=== PATIENT | female | born 2000 | race Hispanic/Latino ===

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

== ENCOUNTER 2022-11-07 17:50 | Emergency (ER) | payer OTHER ==
[2022-11-07 18:29] LABS: Absolute Lymphocytes (CBC) 2.5 K/uL (0.7-4.9); Hematocrit 41.2 % (36.0-45.0); Lymphocytes % 26.4 % (15.3-44.8); MCV 92.9 fL (80-100); MPV 7.6 fL (7.6-11.3); RBC Red Blood Cell Count 4.44 M/uL (3.86-4.86)
[2022-11-07 18:31] LABS: Specific Gravity 1.021 (1.005-1.030)
[2022-11-07 18:38] LABS: Specific Gravity 1.021 (1.005-1.030); Urine Bilirubin NEGATIVE (Negative); Urine Blood 3+ (OVER) (Negative); Urine Clarity Clear (Clear); Urine Color Light-Yellow (Yellow); Urine Glucose NEGATIVE (Negative); Urine Mucus 1+ /HPF (None Seen); Urine Protein TRACE (Negative); Urine Urobilinogen Normal (Normal); Urine pH 5.5 (5.0-7.0)
[2022-11-07 18:39] LABS: Urine Bacteria 20-50 /HPF (<20)
[2022-11-07 18:48] LABS: Potassium 3.4 mEq/L (3.5-5.1)
--- NOTE | 2022-11-07 20:42 | RAD REPORT ---
EXAM DESCRIPTION: US - TRANSVAG OB - 11/07/2022 8:27 pm CLINICAL HISTORY: VAGINAL BLEEDING COMPARISON: No comparisons FINDINGS: No gestational sac identified. Left ovary is unremarkable. It measures 3.3 x 1.7 x 2.9 cm with volume of 8.1 cc. Vascular flow is pr esent. The right ovary was not visualized. It may have been obscured by bowel gas. IMPRESSION: 1. No normal IUP identified. Therefore, cannot exclude early normal first trimester preg radha, failed first trimester , or early ectopic. 2. Vascular flow present in the left ovary. Right ovary not visualized.
--- NOTE | 2022-11-07 20:59 | EDPHYS ---
Physician Documentation [facility] Name: Radha Zaldivar Age: 22 yrs Sex: Female : 2000 Arrival Date: 11/07/2022 Time: 17:50 Bed 12 Private MD: ED Physician Bong Cuevas HPI: 11/07 19:46 This 22 yrs old Female presents to ER via Ambulatory with complaints of jmm Vaginal Bleeding, + Preg <12wks. 19:46 Is a 22-year-old female G1, P0 the presents emerged part with complaints of vaginal jmm bleeding. Bleeding began this past Tuesday. Seen at an ER in [facility]. Ultrasound did not reveal an IUP. Blood counts within normal limits. Patient states she has had continued bleeding. 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 - Social history:: Smoking status: Reported history of juuling and/or vaping. ROS: 19:46 Constitutional: Negative for fever, chills, and weight loss, Cardiovascular: Negative jmm for chest pain, palpitations, and edema, Respiratory: Negative for shortness of breath, cough, wheezing, and pleuritic chest pain. 19:46 : Positive for vaginal bleeding. 19:46 All other systems are negative. Exam: 19:46 Constitutional: This is a well developed, well nourished patient who is awake, alert, jmm and in no acute distress. Head/Face: atraumatic. Eyes: EOMI, no conjunctival erythema appreciated ENT: Moist Mucus Membranes Neck: Trachea midline, Supple Chest/axilla: Normal chest wall appearance and motion. Cardiovascular: Regular rate and rhythm. No edema appreciated Respiratory: Normal respirations, no respiratory distress appreciated Abdomen/GI: Non distended Back: Normal ROM Skin: General appearance color normal MS/ Extremity: Moves all extremities, no obvious deformities appreciated, no edema noted to the lower extremities Neuro: Awake and alert Psych: Behavior is normal, Mood is normal, Patient is cooperative and pleasant Vital Signs: 18:48 BP 120 / 77; Pulse 73; Resp 16; Temp 99.4(O); Pulse Ox 100% ; Weight 70.31 kg; Height 4 nj1 ft. 11 in. ; Pain 8/10; 19:46 BP 127 / 72; Pulse 76; Resp 16; Pulse Ox 98% on R/A; Pain 8/10; pf1 21:13 BP 115 / 69; Pulse 79; Resp 18; Temp 98.9; Pulse Ox 99% on R/A; Pain 5/10; pf1 18:48 Body Mass Index 31.31 (70.31 kg, 149.86 cm) nj1 18:48 Pain Scale: Adult nj1 19:46 Pain Scale: Adult pf1 21:13 Pain Scale: Adult pf1 MDM: 18:23 Patient medically screened. [facility] 19:47 Data reviewed: vital signs, nurses notes. [facility] 11/07 18:07 Order name: Abo/rh Typing; Complete Time: 18:52 [facility] 11/07 18:07 Order name: Basic Metabolic Panel; Complete Time: 18:49 [facility] 11/07 18:07 Order name: CBC with Diff; Complete Time: 18:30 [facility] 11/07 18:07 Order name: Test, Urine; Complete Time: 18:42 [facility] 11/07 18:07 Order name: Quantitative Hcg; Complete Time: 18:49 [facility] 11/07 18:07 Order name: Urinalysis w/ reflexes; Complete Time: 18:42 [facility] 11/07 19:47 Order name: TRANSVAG OB; Complete Time: 20:42 [facility] 11/07 18:07 Order name: IV Saline Lock; Complete Time: 18:22 [facility] 11/07 18:07 Order name: Labs collected and sent; Complete Time: 18:22 [facility] 11/07 18:07 Order name: NPO; Complete Time: 18:22 [facility] Administered Medications: No medications were administered Disposition: 20:59 Co-signature as Attending Physician, Bong Cuevas MD I agree with the assessment and rt plan of care. I reviewed the patient's care provided by Advanced Practice Provider \T\ agree w/ the diagnosis \T\ care plan. I personally saw the pt \T\ performed a substantive portion of the visit, incldng all aspects of the (History/Exam/Medical Decision Making). Patient with indeterminate hCG, no clear IUP on ultrasound. Had a long discussion with the patient regarding possibilities of early IUP versus miscarriage versus ectopic . At this time, I do not believe the patient requires admission to the hospital or methotrexate. Did recommend close 48-hour follow-up with return precautions if patient develops significant blood loss symptoms or worsening abdominal pain. The patient, family's questions were answered, she verbalized understanding and is comfortable with this plan.. Disposition Summary: 11/07/22 20:58 Discharge Ordered Location: Home rt Problem: new rt Symptoms: are unchanged rt Condition: Stable rt Diagnosis - First trimester vaginal bleeding rt Followup: rt - With: Private Physician - When: 1 - 2 days - Reason: Followup: rt - With: Emergency Department - When: 48 Hours - Reason: Repeat Beta-HCG (48 Hours) Discharge Instructions: - Discharge Summary Sheet rt - Ruptured Ectopic rt - Ectopic rt - Threatened Miscarriage rt Forms: - Medication Reconciliation Form rt - Thank You Letter rt - Antibiotic Education rt - Prescription Opioid Use rt Signatures: Dispatcher [employer] EDMS Meek Monzon PA PA jmm [place], Ryan, MD MD rt Apoorva Soliz RN RN nj1 Corrections: (The following items were deleted from the chart) 19:47 18:09 OB Limited+US.RAD.JAMES ordered. EDID EDMS
--- NOTE | 2022-11-07 20:59 | ER ---
Nurse's Notes [facility] Name: Radha Zaldivar Age: 22 yrs Sex: Female : 2000 Arrival Date: 11/07/2022 Time: 17:50 Bed 12 Private MD: Diagnosis: First trimester vaginal bleeding Presentation: 11/07 18:48 Chief complaint: Patient states: Was told Tuesday that she may be about 3 weeks nj1 (PCP). Vaginal bleeding started on Tuesday, getting worse and darker. Abdominal cramping today. . Coronavirus screen: Vaccine status: Patient reports receiving the 2nd dose of the covid vaccine. Ebola Screen: Patient denies travel to an Ebola-affected area in the 21 days before illness onset. Initial Sepsis Screen: Does the patient meet any 2 criteria? No. Patient's initial sepsis screen is negative. Does the patient have a suspected source of infection? No. Patient's initial sepsis screen is negative. Risk Assessment: Do you want to hurt yourself or someone else? Patient reports no desire to harm self or others. Onset of symptoms was November 05, 2022. 18:48 Method Of Arrival: Ambulatory [facility] 18:48 Acuity: LETICIA 3 [facility] ENAMEL CRACKER: 19:44 1, Full Term 0, Premature 0, 0, Living 0 pf1 Historical: - Allergies: 18:50 No Known Allergies; nj1 - PMHx: 18:50 Anxiety; Depression; GERD; PTSD; Seizures; [facility] - PSHx: 18:50 None; nj1 - Immunization history:: Client reports receiving the 2nd dose of the Covid vaccine. - Social history:: Smoking status: Reported history of juuling and/or vaping. Screenin:45 [facility] ED Fall Risk Assessment (Adult) History of falling in the last 3 months, pf1 including since admission No falls in past 3 months (0 pts) Confusion or Disorientation No (0 pts) Intoxicated or Sedated No (0 pts) Impaired Gait No (0 pts) Mobility Assist Device Used No (0 pt) Altered Elimination No (0 pt) Score/Fall Risk Level 0 - 2 = Low Risk Oriented to surroundings, Maintained a safe environment, Educated pt \T\ family on fall prevention, incl call for assistance when getting out of bed, Assessed \T\ reinforced patient's understanding of fall precautions, Provided non-skid footwear, Hourly rounding (assess needs \T\ fall precautionary measures) done, Used ambulatory aids as needed (educated on \T\ assisted with), Used gait belt as appropriate. Abuse screen: Denies threats or abuse. Nutritional screening: No deficits noted. Tuberculosis screening: No symptoms or risk factors identified. Assessment: 19:35 General: Appears in no apparent distress. comfortable, well groomed, well developed, pf1 Behavior is calm, cooperative, appropriate for age, quiet. 19:35 Pain: Complains of pain in abdomen Pain currently is 8 out of 10 on a pain scale. Pain pf1 began 1 day ago. Neuro: No deficits noted. Level of Consciousness is awake, alert, obeys commands, Oriented to person, place, time, situation. Cardiovascular: No deficits noted. Capillary refill < 3 seconds Patient's skin is warm and dry. Respiratory: No deficits noted. Airway is patent Respiratory effort is even, unlabored, Respiratory pattern is regular, symmetrical. GI: Reports lower abdominal pain, upper abdominal pain. : Reports vaginal bleeding that is with clots, since Tuesday, patient stated small clots started today. : Reports. EENT: No deficits noted. No signs and/or symptoms were reported regarding the EENT system. Derm: No deficits noted. No signs and/or symptoms reported regarding the dermatologic system. 19:40 General: US at BS. pf1 Vital Signs: 18:48 BP 120 / 77; Pulse 73; Resp 16; Temp 99.4(O); Pulse Ox 100% ; Weight 70.31 kg; Height 4 nj1 ft. 11 in. ; Pain 8/10; 19:46 BP 127 / 72; Pulse 76; Resp 16; Pulse Ox 98% on R/A; Pain 8/10; pf1 21:13 BP 115 / 69; Pulse 79; Resp 18; Temp 98.9; Pulse Ox 99% on R/A; Pain 5/10; pf1 18:48 Body Mass Index 31.31 (70.31 kg, 149.86 cm) nj1 18:48 Pain Scale: Adult nj1 19:46 Pain Scale: Adult pf1 21:13 Pain Scale: Adult pf1 ED Course: 17:51 Patient arrived in ED. am2 17:53 Meek Monzon PA is PHCP. m 17:53 Lauri Marcelo MD is Attending Physician. jmm 18:22 Abo/rh Typing Sent. bc6 18:23 Basic Metabolic Panel Sent. bc6 18:23 CBC with Diff Sent. bc6 18:23 Test, Urine Sent. bc6 18:23 Quantitative Hcg Sent. bc6 18:23 Urinalysis w/ reflexes Sent. bc6 18:23 Inserted saline lock: 20 gauge in right antecubital area, using aseptic technique. bc6 18:50 Triage completed. nj1 18:51 Arm band placed on right wrist. nj1 19:25 Patient has correct armband on for positive identification. Bed in low position. Call pf1 light in reach. 19:46 No provider procedures requiring assistance completed. pf1 19:58 Attending Physician role handed off by Lauri Marcelo MD rt 19:58 Bong Cuevas MD is Attending Physician. rt 20:29 TRANSVAG OB In Process Unspecified. EDMS 21:12 IV discontinued, intact, bleeding controlled, No redness/swelling at site. Pressure pf1 dressing applied. Administered Medications: No medications were administered Medication: 21:13 VIS not applicable for this client. pf1 Outcome: 20:58 Discharge ordered by MD. rt 21:12 Discharged to home ambulatory, with family. pf1 21:12 Condition: stable 21:12 Discharge instructions given to patient, family, Instructed on discharge instructions, follow up and referral plans. Demonstrated understanding of instructions, follow-up care. 21:13 Patient left the ED. pf1 Signatures: Dispatcher [employer] EDMS Meek Monzon PA PA [facility] Felicia Blandon 2 Bong Cuevas MD MD rt Christina Zafar, RN RN pf1 Rosey Darden bc6 Apoorva Soliz, BARRON RN nj1
== END 2022-11-07 21:13 | disposition home or self-care (01) ==
LOC: ER 17:50
DX: O46.91 Antepartum hemorrhage, unspecified, first trimester (principal)
CPT/HCPCS: 36415; 76813; 80048; 81001; 81025; 84702; 85025; 86900; 86901; 99284

== ENCOUNTER 2024-04-04 19:52 | Inpatient (IN) | payer SELFPAY ==
--- OUTSIDE RECORDS SUMMARY | 2024-04-04 19:59 | XMS REPORT | Continuity of Care Document ---
Author Name Unknown Address [address] [facility] [address] [place] [address] [facility] thconnect Address [address] [facility] [address] [place] [address] Care Team Providers Care Flute Polisher Name Role Phone Betzy Boone Primary Care Physician [phone] SYMONE DOMINGUEZ Attending Clinician Unavailable ALICIA EMMANUEL Attending Clinician Unavail able JOSE HURLEY Attending Clinician Unavailable Doctor Unassigned, [place] Attending Clinician U navailable Rhett TOASTER ELEMENT REPAIRER, Baldo Attending Clinician 2, [facility] Attending Clinician Unavailable BALDO MCNAMARA Attending Clinician Unavailab CAROLYN Johansen Attending Clinician Unavailab BETZY Nguyen Attending Clinician UnavailBetzy Cardoso Attending Clinician [phone] Carolyn Lyn Attending Clinician [phone] NORA CROOKS Attending Clinician Unavailable Daksha EASTMAN, Nora Attending Clinician [phone] Otilio Garcia RN Attending Clinician Unavailimer Robertson RN, Suzy Attending Clinician Unavailable Leonid Davies PA-C Attending Clinician LEONID DAVIES Attending Clinician Unavailable KATIE OLGUIN Attending Clinician Unavailab le Visit, Ang-Rmch[facility] Nurse Attending Clinician Leola Olguin LUMBER KILN OPERATOR, Katie Villasenor Attending Clinician [phone] Isaiah Valadez MD Attending Clinician [phone] hColo CNP, Alicia Craft Attending Clinician + NORA CROOKS Admitting Clinician Unavailable Payers Payer Name Policy Type Policy Number Effective Date Expirati on Date Source [facility] [id number] 2023 00:00:00 [place] [employer] [id number] 2022 00:00:00 Problems Condition Name Condition Details Condition Category Status Onset Date Resolution Date Last Treatment Date Treating Clinician Comments Source BMI 26.0-26.9, adult BMI 26.0-26.9, adult Disease Active 10-26 00:00: 00 [facility] History of trauma History of trauma Disease Active 10-26 00:00: 00 [facility] Maternal varicella, non-immune Maternal varicella, non-immune Disease Resolve d 11-03 00:00: 00 2023-12-02 00:00:00 2023-12-02 07:15:39 [facility] Overweight (BMI 25.0-29.9) Overweight (BMI 25.0-29.9) Disease Resolve d 11-01 00:00: 00 2023-12-02 00:00:00 2023-12-02 07:15:37 [facility] Dysmenorrh ea Dysmenorrh ea Disease Resolve d 07-04 00:00: 00 2022-11-01 00:00:00 2022-11-01 11:07:04 [facility] BMI 26.0-26.9, adult BMI 26.0-26.9, adult Disease Resolve d 10-26 00:00: 00 2022-11-01 00:00:00 2022-11-01 11:07:00 [facility] Nexplanon removal Nexplanon removal Disease Resolve d 11-14 00:00: 00 2021-06-09 00:00:00 2021-06-09 14:38:23 [facility] Screening for STD (sexually transmitte d disease) Screening for STD (sexually transmitte d disease) Disease Resolve d 16 00:00: 00 2021-06-09 00:00:00 2021-06-09 14:38:18 [facility] Tobacco user Tobacco user Disease Resolve d 16 00:00: 00 2021-06-09 00:00:00 2021-06-09 14:38:19 [facility] Habitual drug user Habitual drug user Disease Resolve d 16 00:00: 00 2021-06-09 00:00:00 2021-06-09 14:38:20 [facility] Irregular menstrual cycle Irregular menstrual cycle Disease Resolve d 16 00:00: 00 2021-06-09 00:00:00 2021-06-09 14:38:16 [facility] Allergies, Adverse Reactions, Alerts Allergy Name Allergy Type Status Severity Reaction(s) Onset Date Inactive Date Treating Clinician Comments Source NO KNOWN ALLERGIE S Drug Class Active [facility] Social History Social Habit Start Date Stop Date Quantity Comments Source ASSERTION 2022-10-07 00:00:00 [facility] History SDOH Alcohol Frequency [facility] History SDOH Alcohol Std Drinks [facility] History SDOH Alcohol Binge [facility] History SDOH Housing Places Lived [facility] Alcoholic beverage intake 2023-12-02 00:00:00 2023-12-02 00:00:00 1.14 /d [facility] Tobacco Comment 2023-12-02 00:00:00 2023-12-02 00:00:00 Vapes daily x 4 years [facility] Cigarettes smoked current (pack per day) - Reported 2023-12-02 00:00:00 2023-12-02 00:00:00 [facility] Cigarette pack-years 2023-12-02 00:00:00 2023-12-02 00:00:00 [facility] Tobacco use and exposure 2023-12-02 00:00:00 2023-12-02 00:00:00 User of smokeless tobacco [facility] History of Social function 2023-12-02 00:00:00 2023-12-02 00:00:00 [facility] Alcohol intake 2022-12-07 00:00:00 2022-12-07 00:00:00 Ex-drinker (finding) [facility] Exposure to SARS-CoV-2 (event) 2022-11-26 00:00:00 2022-12-06 13:09:00 Not sure [facility] History SDOH Social Connections Phone 2022-12-06 00:00:00 2022-12-06 00:00:00 5 [facility] History SDOH Social Connections Get Together 2022-12-06 00:00:00 2022-12-06 00:00:00 3 [facility] History SDOH Social Connections [facility] 2022-12-06 00:00:00 2022-12-06 00:00:00 98 [facility] History SDOH Social Connections Membership 2022-12-06 00:00:00 2022-12-06 00:00:00 98 [facility] History SDOH Social Connections Meetings 2022-12-06 00:00:00 2022-12-06 00:00:00 98 [facility] History SDOH Social Connections Living 2022-12-06 00:00:00 2022-12-06 00:00:[address] [facility] SDOH Physical Activity DPW 2022-12-06 00:00:00 2022-12-06 00:00:00 6 [facility] History SDOH Physical Activity MPS 2022-12-06 00:00:00 2022-12-06 00:00:00 15 [facility] History SDOH Stress 2022-12-06 00:00:00 2022-12-06 00:00:00 5 [facility] History SDOH Housing Unable to Pay 2022-12-06 00:00:00 2022-12-06 00:00:00 3 [facility] History SDOH Housing Homeless Last Year 2022-12-06 00:00:00 2022-12-06 00:00:00 3 [facility] Alcohol Comment 2022-11-01 00:00:00 2022-11-01 00:00:00 no since pregancy [facility] History of tobacco use 2018-04-30 00:00:00 2019-04-30 00:00:00 Cigarette Smoker [facility] Sex assigned at 2000 00:00:00 2000 00:00:00 [facility] Smoking Status Start Date Stop Date Source Ex-smoker 2023-12-02 00:00:00 2023-12-02 00:00:00 [facility] Medications Ordered Medication Name Filled Medication Name Start Date Stop Date Current Medication? Ordering Clinician Indication Dosage Frequency Signature (SIG) Comments Components Source cholecalcif bety (vitamin D3) 1,250 mcg (50,000 unit) capsule 2023-06 0 00:00: 00 Yes 1(50,00 0 unit) Bert Kowalski cholecalcif bety (vitamin D3) 1,250 mcg (50,000 unit) capsule 12-12 00:00: 00 Yes 1(50,00 0 unit) Bert Kowalski PNV no.95/larry us fum/folic ac ( ORAL) 12-01 07:00: 50 Yes Take by mouth daily. [facility] PNV no.95/larry us fum/folic ac ( ORAL) 12-07 09:17: 14 Yes Take by mouth daily. [facility] HYDROcodone -acetaminop hen (NORCO 5) 5-325 mg tablet 2 tablet 11-08 22:15: 00 11-08 21:46 :00 No 2{tbl} 2 tablet, Oral, ONCE, 1 dose, On Tue11/08/22 at 1715, [facility] ibuprofen (IBU) tablet 600 mg 11-08 22:15: 00 11-08 21:46 :00 No 600mg 600 mg, Oral, ONCE, 1 dose, On Tue11/08/22 at 1715, SANDEE [facility] metroNIDAZO LE 500 mg tablet 06-18 00:00: 00 Yes [id number] 500mg Take 1 tablet by mouth 2 (two) times daily. [facility] No known medications 06-16 07:15: 27 No No known medication s [facility] No known medications 2020-06 14:38: 01 No [facility] pantoprazol e 40 mg tablet,hanane yed release 10-10 00:00: 00 Yes 1mg Bert Kowalski Bromfed DM 2 mg-30 mg-10 mg/5 mL oral syrup 2019-06 00:00: 00 Yes 5mg/5 mL Bert Kowalski Bactrim DS 800 mg-160 mg tablet 12-21 00:00: 00 Yes 1mg Bert Kowalski clotrimazol e 1 % topical cream 12-21 00:00: 00 Yes 1% Bert Kowalski omeprazole 40 mg capsule,del ayed release 11-16 00:00: 00 Yes 1mg Bert Kowalski Bactrim DS 800 mg-160 mg tablet 06-30 00:00: 00 Yes 1mg Bert Kowalski Keflex 500 mg capsule 01-02 00:00: 00 Yes 1mg Bert Kowalski prednisone 20 mg tablet 03-07 00:00: 00 Yes 1mg Bert Kowalski azithromyci n 250 mg tablet 03-07 00:00: 00 Yes 1mg Bert Montanafed DM 2 mg-30 mg-10 mg/5 mL syrup 03-07 00:00: 00 Yes 10mg/5 mL Bert Kowalski Immunizations Ordered Immunization Name Filled Immunization Name Date Status Comments Source Influenza Virus Vaccine Quad .5 mL IM 6+ MO 2022-06-16 00:00:00 Completed [facility] Influenza Virus Vaccine Quad .5 mL IM 6+ MO 2022-06-16 00:00:00 Completed [facility] Influenza Virus Vaccine Quad .5 mL IM 6+ MO 2022-06-16 00:00:00 Completed [facility] Influenza Virus Vaccine Quad .5 mL IM 6+ MO 2022-06-16 00:00:00 Completed [facility] Influenza Virus Vaccine Quad .5 mL IM 6+ MO 2022-06-16 00:00:00 Completed [facility] Influenza Virus Vaccine Quad .5 mL IM 6+ MO 2022-06-16 00:00:00 Completed [facility] Influenza Virus Vaccine Quad .5 mL IM 6+ MO 2022-06-16 00:00:00 Completed [facility] Influenza Virus Vaccine Quad .5 mL IM 6+ MO 2022-06-16 00:00:00 Completed [facility] Influenza Virus Vaccine Quad .5 mL IM 6+ MO 2022-06-16 00:00:00 Completed [facility] Influenza Virus Vaccine Quad .5 mL IM 6+ MO 2022-06-16 00:00:00 Completed [facility] Influenza Virus Vaccine Quad .5 mL IM 6+ MO 2022-06-16 00:00:00 Completed [facility] Influenza Virus Vaccine Quad .5 mL IM 6+ MO 2022-06-16 00:00:00 Completed [facility] Influenza Virus Vaccine Quad .5 mL IM 6+ MO 2022-06-16 00:00:00 Completed [facility] HPV9 2021-12-21 00:00:00 Completed [facility] HPV9 2021-12-21 00:00:00 Completed [facility] HPV9 2021-12-21 00:00:00 Completed [facility] HPV9 2021-12-21 00:00:00 Completed [facility] HPV9 2021-12-21 00:00:00 Completed [facility] HPV9 2021-12-21 00:00:00 Completed [facility] HPV9 2021-12-21 00:00:00 Completed [facility] HPV9 2021-12-21 00:00:00 Completed [facility] HPV9 2021-12-21 00:00:00 Completed [facility] HPV9 2021-12-21 00:00:00 Completed [facility] HPV9 2021-12-21 00:00:00 Completed [facility] HPV9 2021-12-21 00:00:00 Completed [facility] HPV9 2021-12-21 00:00:00 Completed [facility] HPV9 2021-12-21 00:00:00 Completed [facility] HPV9 2021-08-14 00:00:00 Completed [facility] HPV9 2021-08-14 00:00:00 Completed [facility] HPV9 2021-08-14 00:00:00 Completed [facility] HPV9 2021-08-14 00:00:00 Completed [facility] HPV9 2021-08-14 00:00:00 Completed [facility] HPV9 2021-08-14 00:00:00 Completed [facility] HPV9 2021-08-14 00:00:00 Completed [facility] HPV9 2021-08-14 00:00:00 Completed [facility] HPV9 2021-08-14 00:00:00 Completed [facility] HPV9 2021-08-14 00:00:00 Completed [facility] HPV9 2021-08-14 00:00:00 Completed [facility] HPV9 2021-08-14 00:00:00 Completed [facility] HPV9 2021-08-14 00:00:00 Completed [facility] HPV9 2021-08-14 00:00:00 Completed [facility] HPV9 2021-08-14 00:00:00 Completed [facility] HPV9 2021-06-09 00:00:00 Completed [facility] HPV9 2021-06-09 00:00:00 Completed [facility] HPV9 2021-06-09 00:00:00 Completed [facility] HPV9 2021-06-09 00:00:00 Completed [facility] HPV9 2021-06-09 00:00:00 Completed [facility] HPV9 2021-06-09 00:00:00 Completed [facility] HPV9 2021-06-09 00:00:00 Completed [facility] HPV9 2021-06-09 00:00:00 Completed [facility] HPV9 2021-06-09 00:00:00 Completed [facility] HPV9 2021-06-09 00:00:00 Completed [facility] HPV9 2021-06-09 00:00:00 Completed [facility] HPV9 2021-06-09 00:00:00 Completed [facility] HPV9 2021-06-09 00:00:00 Completed [facility] HPV9 2021-06-09 00:00:00 Completed [facility] HPV9 2021-06-09 00:00:00 Completed [facility] HPV9 2021-06-09 00:00:00 Completed [facility] SARS-COV-2 COVID-19 PFIZER VACCINE 2021-04-25 00:00:00 Completed [facility] SARS-COV-2 COVID-19 PFIZER VACCINE 2021-04-25 00:00:00 Completed [facility] SARS-COV-2 COVID-19 PFIZER VACCINE 2021-04-25 00:00:00 Completed [facility] SARS-COV-2 COVID-19 PFIZER VACCINE 2021-04-25 00:00:00 Completed [facility] SARS-COV-2 COVID-19 PFIZER VACCINE 2021-04-25 00:00:00 Completed [facility] SARS-COV-2 COVID-19 PFIZER VACCINE 2021-04-25 00:00:00 Completed [facility] SARS-COV-2 COVID-19 PFIZER VACCINE 2021-04-25 00:00:00 Completed [facility] SARS-COV-2 COVID-19 PFIZER VACCINE 2021-04-25 00:00:00 Completed [facility] SARS-COV-2 COVID-19 PFIZER VACCINE 2021-04-25 00:00:00 Completed [facility] SARS-COV-2 COVID-19 PFIZER VACCINE 2021-04-25 00:00:00 Completed [facility] SARS-COV-2 COVID-19 PFIZER VACCINE 2021-04-25 00:00:00 Completed [facility] SARS-COV-2 COVID-19 PFIZER VACCINE 2021-04-04 00:00:00 Completed [facility] SARS-COV-2 COVID-19 PFIZER VACCINE 2021-04-04 00:00:00 Completed [facility] SARS-COV-2 COVID-19 PFIZER VACCINE 2021-04-04 00:00:00 Completed [facility] SARS-COV-2 COVID-19 PFIZER VACCINE 2021-04-04 00:00:00 Completed [facility] SARS-COV-2 COVID-19 PFIZER VACCINE 2021-04-04 00:00:00 Completed [facility] SARS-COV-2 COVID-19 PFIZER VACCINE 2021-04-04 00:00:00 Completed [facility] SARS-COV-2 COVID-19 PFIZER VACCINE 2021-04-04 00:00:00 Completed [facility] SARS-COV-2 COVID-19 PFIZER VACCINE 2021-04-04 00:00:00 Completed [facility] SARS-COV-2 COVID-19 PFIZER VACCINE 2021-04-04 00:00:00 Completed [facility] SARS-COV-2 COVID-19 PFIZER VACCINE 2021-04-04 00:00:00 Completed [facility] SARS-COV-2 COVID-19 PFIZER VACCINE 2021-04-04 00:00:00 Completed [facility] meningococcal MCV4P meningococcal MCV4P 00:00:00 Completed [facility]owals[facility] Meningococcal Polysaccharide (groups A, C, Y and W-135) conjugate vaccine (MCV4P) 2019-05-16 00:00:00 Completed [facility] Meningococcal Polysaccharide (groups A, C, Y and W-135) conjugate vaccine (MCV4P) 2019-05-16 00:00:00 Completed [facility] Meningococcal Polysaccharide (groups A, C, Y and W-135) conjugate vaccine (MCV4P) 2019-05-16 00:00:00 Completed [facility] Meningococcal Polysaccharide (groups A, C, Y and W-135) conjugate vaccine (MCV4P) 2019-05-16 00:00:00 Completed [facility] Meningococcal Polysaccharide (groups A, C, Y and W-135) conjugate vaccine (MCV4P) 2019-05-16 00:00:00 Completed [facility] Meningococcal Polysaccharide (groups A, C, Y and W-135) conjugate vaccine (MCV4P) 2019-05-16 00:00:00 Completed [facility] Meningococcal Polysaccharide (groups A, C, Y and W-135) conjugate vaccine (MCV4P) 2019-05-16 00:00:00 Completed [facility] Meningococcal Polysaccharide (groups A, C, Y and W-135) conjugate vaccine (MCV4P) 2019-05-16 00:00:00 Completed [facility] Meningococcal Polysaccharide (groups A, C, Y and W-135) conjugate vaccine (MCV4P) 2019-05-16 00:00:00 Completed [facility] Meningococcal Polysaccharide (groups A, C, Y and W-135) conjugate vaccine (MCV4P) 2019-05-16 00:00:00 Completed [facility] Meningococcal Polysaccharide (groups A, C, Y and W-135) conjugate vaccine (MCV4P) 2019-05-16 00:00:00 Completed [facility] Influenza, seasonal, inj Influenza, seasonal, inj 2017-03-16 00:00:00 Completed Bert Kowals[facility] Influenza Virus Vaccine - Whole 2012-03-29 00:00:00 Completed [facility] HPV 2012-03-29 00:00:00 Completed [facility] Influenza Virus Vaccine - Whole 2012-03-29 00:00:00 Completed [facility] HPV 2012-03-29 00:00:00 Completed [facility] Influenza Virus Vaccine - Whole 2012-03-29 00:00:00 Completed [facility] HPV 2012-03-29 00:00:00 Completed [facility] Influenza Virus Vaccine - Whole 2012-03-29 00:00:00 Completed [facility] HPV 2012-03-29 00:00:00 Completed [facility] Influenza Virus Vaccine - Whole 2012-03-29 00:00:00 Completed [facility] HPV 2012-03-29 00:00:00 Completed [facility] Influenza Virus Vaccine - Whole 2012-03-29 00:00:00 Completed [facility] HPV 2012-03-29 00:00:00 Completed [facility] Influenza Virus Vaccine - Whole 2012-03-29 00:00:00 Completed [facility] HPV 2012-03-29 00:00:00 Completed [facility] Influenza Virus Vaccine - Whole 2012-03-29 00:00:00 Completed [facility] HPV 2012-03-29 00:00:00 Completed [facility] Influenza Virus Vaccine - Whole 2012-03-29 00:00:00 Completed [facility] HPV 2012-03-29 00:00:00 Completed [facility] Influenza Virus Vaccine - Whole 2012-03-29 00:00:00 Completed [facility] HPV 2012-03-29 00:00:00 Completed [facility] Influenza Virus Vaccine - Whole 2012-03-29 00:00:00 Completed [facility] HPV 2012-03-29 00:00:00 Completed [facility] HPV 2011-10-26 00:00:00 Completed [facility] Meningococcal Polysaccharide (groups A, C, Y and W-135) conjugate vaccine (MCV4P) 2011-10-26 00:00:00 Completed [facility] TDAP 2011-10-26 00:00:00 Completed [facility] Varicella (varivax)(chicken pox) 2011-10-26 00:00:00 Completed [facility] HPV 2011-10-26 00:00:00 Completed [facility] Meningococcal Polysaccharide (groups A, C, Y and W-135) conjugate vaccine (MCV4P) 2011-10-26 00:00:00 Completed [facility] TDAP 2011-10-26 00:00:00 Completed [facility] Varicella (varivax)(chicken pox) 2011-10-26 00:00:00 Completed [facility] HPV 2011-10-26 00:00:00 Completed [facility] Meningococcal Polysaccharide (groups A, C, Y and W-135) conjugate vaccine (MCV4P) 2011-10-26 00:00:00 Completed [facility] TDAP 2011-10-26 00:00:00 Completed [facility] Varicella (varivax)(chicken pox) 2011-10-26 00:00:00 Completed [facility] HPV 2011-10-26 00:00:00 Completed [facility] Meningococcal Polysaccharide (groups A, C, Y and W-135) conjugate vaccine (MCV4P) 2011-10-26 00:00:00 Completed [facility] TDAP 2011-10-26 00:00:00 Completed [facility] Varicella (varivax)(chicken pox) 2011-10-26 00:00:00 Completed [facility] HPV 2011-10-26 00:00:00 Completed [facility] Meningococcal Polysaccharide (groups A, C, Y and W-135) conjugate vaccine (MCV4P) 2011-10-26 00:00:00 Completed [facility] TDAP 2011-10-26 00:00:00 Completed [facility] Varicella (varivax)(chicken pox) 2011-10-26 00:00:00 Completed [facility] HPV 2011-10-26 00:00:00 Completed [facility] Meningococcal Polysaccharide (groups A, C, Y and W-135) conjugate vaccine (MCV4P) 2011-10-26 00:00:00 Completed [facility] TDAP 2011-10-26 00:00:00 Completed [facility] Varicella (varivax)(chicken pox) 2011-10-26 00:00:00 Completed [facility] HPV 2011-10-26 00:00:00 Completed [facility] Meningococcal Polysaccharide (groups A, C, Y and W-135) conjugate vaccine (MCV4P) 2011-10-26 00:00:00 Completed [facility] TDAP 2011-10-26 00:00:00 Completed [facility] Varicella (varivax)(chicken pox) 2011-10-26 00:00:00 Completed [facility] HPV 2011-10-26 00:00:00 Completed [facility] Meningococcal Polysaccharide (groups A, C, Y and W-135) conjugate vaccine (MCV4P) 2011-10-26 00:00:00 Completed [facility] TDAP 2011-10-26 00:00:00 Completed [facility] Varicella (varivax)(chicken pox) 2011-10-26 00:00:00 Completed [facility] HPV 2011-10-26 00:00:00 Completed [facility] Meningococcal Polysaccharide (groups A, C, Y and W-135) conjugate vaccine (MCV4P) 2011-10-26 00:00:00 Completed [facility] TDAP 2011-10-26 00:00:00 Completed [facility] Varicella (varivax)(chicken pox) 2011-10-26 00:00:00 Completed [facility] HPV 2011-10-26 00:00:00 Completed [facility] Meningococcal Polysaccharide (groups A, C, Y and W-135) conjugate vaccine (MCV4P) 2011-10-26 00:00:00 Completed [facility] TDAP 2011-10-26 00:00:00 Completed [facility] Varicella (varivax)(chicken pox) 2011-10-26 00:00:00 Completed [facility] HPV 2011-10-26 00:00:00 Completed [facility] Meningococcal Polysaccharide (groups A, C, Y and W-135) conjugate vaccine (MCV4P) 2011-10-26 00:00:00 Completed [facility] TDAP 2011-10-26 00:00:00 Completed [facility] Varicella (varivax)(chicken pox) 2011-10-26 00:00:00 Completed [facility] DTaP, Unspecified Formulation 2004-01-27 00:00:00 Completed [facility] MMR 2004-01-27 00:00:00 Completed [facility] IPV 2004-01-27 00:00:00 Completed [facility] DTaP, Unspecified Formulation 2004-01-27 00:00:00 Completed [facility] MMR 2004-01-27 00:00:00 Completed [facility] IPV 2004-01-27 00:00:00 Completed [facility] DTaP, Unspecified Formulation 2004-01-27 00:00:00 Completed [facility] MMR 2004-01-27 00:00:00 Completed [facility] IPV 2004-01-27 00:00:00 Completed [facility] DTaP, Unspecified Formulation 2004-01-27 00:00:00 Completed [facility] MMR 2004-01-27 00:00:00 Completed [facility] IPV 2004-01-27 00:00:00 Completed [facility] DTaP, Unspecified Formulation 2004-01-27 00:00:00 Completed [facility] [facility] MMR 2004-01-27 00:00:00 Completed [facility] IPV 2004-01-27 00:00:00 Completed [facility] DTaP, Unspecified Formulation 2004-01-27 00:00:00 Completed [facility] MMR 2004-01-27 00:00:00 Completed [facility] IPV 2004-01-27 00:00:00 Completed [facility] DTaP, Unspecified Formulation 2004-01-27 00:00:00 Completed [facility] MMR 2004-01-27 00:00:00 Completed [facility] IPV 2004-01-27 00:00:00 Completed [facility] DTaP, Unspecified Formulation 2004-01-27 00:00:00 Completed [facility] MMR 2004-01-27 00:00:00 Completed [facility] IPV 2004-01-27 00:00:00 Completed [facility] DTaP, Unspecified Formulation 2004-01-27 00:00:00 Completed [facility] MMR 2004-01-27 00:00:00 Completed [facility] IPV 2004-01-27 00:00:00 Completed [facility] DTaP, Unspecified Formulation 2004-01-27 00:00:00 Completed [facility] MMR 2004-01-27 00:00:00 Completed [facility] IPV 2004-01-27 00:00:00 Completed [facility] DTaP, Unspecified Formulation 2004-01-27 00:00:00 Completed [facility] MMR 2004-01-27 00:00:00 Completed [facility] IPV 2004-01-27 00:00:00 Completed [facility] HEPATITIS A 2003-12-19 00:00:00 Completed [facility] HEPATITIS A 2003-12-19 00:00:00 Completed [facility] HEPATITIS A 2003-12-19 00:00:00 Completed [facility] HEPATITIS A 2003-12-19 00:00:00 Completed [facility] HEPATITIS A 2003-12-19 00:00:00 Completed [facility] HEPATITIS A 2003-12-19 00:00:00 Completed [facility] HEPATITIS A 2003-12-19 00:00:00 Completed [facility] HEPATITIS A 2003-12-19 00:00:00 Completed [facility] HEPATITIS A 2003-12-19 00:00:00 Completed [facility] HEPATITIS A 2003-12-19 00:00:00 Completed [facility] HEPATITIS A 2003-12-19 00:00:00 Completed [facility] Influenza Virus Vaccine - Whole 2003-03-12 00:00:00 Completed [facility] Varicella (varivax)(chicken pox) 2003-03-12 00:00:00 Completed [facility] Influenza Virus Vaccine - Whole 2003-03-12 00:00:00 Completed [facility] Varicella (varivax)(chicken pox) 2003-03-12 00:00:00 Completed [facility] Influenza Virus Vaccine - Whole 2003-03-12 00:00:00 Completed [facility] Varicella (varivax)(chicken pox) 2003-03-12 00:00:00 Completed [facility] Influenza Virus Vaccine - Whole 2003-03-12 00:00:00 Completed [facility] Varicella (varivax)(chicken pox) 2003-03-12 00:00:00 Completed [facility] Influenza Virus Vaccine - Whole 2003-03-12 00:00:00 Completed [facility] Varicella (varivax)(chicken pox) 2003-03-12 00:00:00 Completed [facility] Influenza Virus Vaccine - Whole 2003-03-12 00:00:00 Completed [facility] Varicella (varivax)(chicken pox) 2003-03-12 00:00:00 Completed [facility] Influenza Virus Vaccine - Whole 2003-03-12 00:00:00 Completed [facility] Varicella (varivax)(chicken pox) 2003-03-12 00:00:00 Completed [facility] Influenza Virus Vaccine - Whole 2003-03-12 00:00:00 Completed [facility] Varicella (varivax)(chicken pox) 2003-03-12 00:00:00 Completed [facility] Influenza Virus Vaccine - Whole 2003-03-12 00:00:00 Completed [facility] Varicella (varivax)(chicken pox) 2003-03-12 00:00:00 Completed [facility] Influenza Virus Vaccine - Whole 2003-03-12 00:00:00 Completed [facility] Varicella (varivax)(chicken pox) 2003-03-12 00:00:00 Completed [facility] Influenza Virus Vaccine - Whole 2003-03-12 00:00:00 Completed [facility] Varicella (varivax)(chicken pox) 2003-03-12 00:00:00 Completed [facility] HEPATITIS A 2002-11-16 00:00:00 Completed [facility] HEPATITIS A 2002-11-16 00:00:00 Completed [facility] HEPATITIS A 2002-11-16 00:00:00 Completed [facility] HEPATITIS A 2002-11-16 00:00:00 Completed [facility] HEPATITIS A 2002-11-16 00:00:00 Completed [facility] HEPATITIS A 2002-11-16 00:00:00 Completed [facility] HEPATITIS A 2002-11-16 00:00:00 Completed [facility] HEPATITIS A 2002-11-16 00:00:00 Completed [facility] HEPATITIS A 2002-11-16 00:00:00 Completed [facility] HEPATITIS A 2002-11-16 00:00:00 Completed [facility] HEPATITIS A 2002-11-16 00:00:00 Completed [facility] DTaP/HIB 2002-04-03 00:00:00 Completed [facility] MMR 2002-04-03 00:00:00 Completed [facility] IPV 2002-04-03 00:00:00 Completed [facility] DTaP/HIB 2002-04-03 00:00:00 Completed [facility] MMR 2002-04-03 00:00:00 Completed [facility] IPV 2002-04-03 00:00:00 Completed [facility] DTaP/HIB 2002-04-03 00:00:00 Completed [facility] MMR 2002-04-03 00:00:00 Completed [facility] IPV 2002-04-03 00:00:00 Completed [facility] DTaP/HIB 2002-04-03 00:00:00 Completed [facility] MMR 2002-04-03 00:00:00 Completed [facility] IPV 2002-04-03 00:00:00 Completed [facility] DTaP/HIB 2002-04-03 00:00:00 Completed [facility] MMR 2002-04-03 00:00:00 Completed [facility] IPV 2002-04-03 00:00:00 Completed [facility] DTaP/HIB 2002-04-03 00:00:00 Completed [facility] MMR 2002-04-03 00:00:00 Completed [facility] IPV 2002-04-03 00:00:00 Completed [facility] DTaP/HIB 2002-04-03 00:00:00 Completed [facility] MMR 2002-04-03 00:00:00 Completed [facility] IPV 2002-04-03 00:00:00 Completed [facility] DTaP/HIB 2002-04-03 00:00:00 Completed [facility] MMR 2002-04-03 00:00:00 Completed [facility] IPV 2002-04-03 00:00:00 Completed [facility] DTaP/HIB 2002-04-03 00:00:00 Completed [facility] MMR 2002-04-03 00:00:00 Completed [facility] IPV 2002-04-03 00:00:00 Completed [facility] DTaP/HIB 2002-04-03 00:00:00 Completed [facility] MMR 2002-04-03 00:00:00 Completed [facility] IPV 2002-04-03 00:00:00 Completed [facility] DTaP/HIB 2002-04-03 00:00:00 Completed [facility] MMR 2002-04-03 00:00:00 Completed [facility] IPV 2002-04-03 00:00:00 Completed [facility] Pneumococcal 7 Conjugate, PCV7 (Prevnar7) 2000 00:00:00 Completed [facility] Pneumococcal 7 Conjugate, PCV7 (Prevnar7) 2000 00:00:00 Completed [facility] Pneumococcal 7 Conjugate, PCV7 (Prevnar7) 2000 00:00:00 Completed [facility] Pneumococcal 7 Conjugate, PCV7 (Prevnar7) 2000 00:00:00 Completed [facility] Pneumococcal 7 Conjugate, PCV7 (Prevnar7) 2000 00:00:00 Completed [facility] Pneumococcal 7 Conjugate, PCV7 (Prevnar7) 2000 00:00:00 Completed [facility] Pneumococcal 7 Conjugate, PCV7 (Prevnar7) 2000 00:00:00 Completed [facility] Pneumococcal 7 Conjugate, PCV7 (Prevnar7) 2000 00:00:00 Completed [facility] Pneumococcal 7 Conjugate, PCV7 (Prevnar7) 2000 00:00:00 Completed [facility] Pneumococcal 7 Conjugate, PCV7 (Prevnar7) 2000 00:00:00 Completed [facility] Pneumococcal 7 Conjugate, PCV7 (Prevnar7) 2000 00:00:00 Completed [facility] DTaP/HIB 2000 00:00:00 Completed [facility] DTaP/HIB 2000 00:00:00 Completed [facility] DTaP/HIB 2000 00:00:00 Completed [facility] DTaP/HIB 2000 00:00:00 Completed [facility] DTaP/HIB 2000 00:00:00 Completed [facility] DTaP/HIB 2000 00:00:00 Completed [facility] DTaP/HIB 2000 00:00:00 Completed [facility] DTaP/HIB 2000 00:00:00 Completed [facility] DTaP/HIB 2000 00:00:00 Completed [facility] DTaP/HIB 2000 00:00:00 Completed [facility] DTaP/HIB 2000 00:00:00 Completed [facility] DTaP/HIB 2000 00:00:00 Completed [facility] HEPATITIS A 2000 00:00:00 Completed [facility] HEPA-PEDS 2000 00:00:00 Completed [facility] Hep B, Adol or Pedi Dosage 2000 00:00:00 Completed [facility] IPV 2000 00:00:00 Completed [facility] DTaP/HIB 2000 00:00:00 Completed [facility] HEPATITIS A 2000 00:00:00 Completed [facility] HEPA-PEDS 2000 00:00:00 Completed [facility] Hep B, Adol or Pedi Dosage 2000 00:00:00 Completed [facility] IPV 2000 00:00:00 Completed [facility] DTaP/HIB 2000 00:00:00 Completed [facility] HEPATITIS A 2000 00:00:00 Completed [facility] HEPA-PEDS 2000 00:00:00 Completed [facility] Hep B, Adol or Pedi Dosage 2000 00:00:00 Completed [facility] IPV 2000 00:00:00 Completed [facility] DTaP/HIB 2000 00:00:00 Completed [facility] HEPATITIS A 2000 00:00:00 Completed [facility] HEPA-PEDS 2000 00:00:00 Completed [facility] Hep B, Adol or Pedi Dosage 2000 00:00:00 Completed [facility] IPV 2000 00:00:00 Completed [facility] DTaP/HIB 2000 00:00:00 Completed [facility] HEPATITIS A 2000 00:00:00 Completed [facility] HEPA-PEDS 2000 00:00:00 Completed [facility] Hep B, Adol or Pedi Dosage 2000 00:00:00 Completed [facility] IPV 2000 00:00:00 Completed [facility] DTaP/HIB 2000 00:00:00 Completed [facility] HEPATITIS A 2000 00:00:00 Completed [facility] HEPA-PEDS 2000 00:00:00 Completed [facility] Hep B, Adol or Pedi Dosage 2000 00:00:00 Completed [facility] IPV 2000 00:00:00 Completed [facility] DTaP/HIB 2000 00:00:00 Completed [facility] HEPATITIS A 2000 00:00:00 Completed [facility] HEPA-PEDS 2000 00:00:00 Completed [facility] Hep B, Adol or Pedi Dosage 2000 00:00:00 Completed [facility] IPV 2000 00:00:00 Completed [facility] DTaP/HIB 2000 00:00:00 Completed [facility] HEPATITIS A 2000 00:00:00 Completed [facility] HEPA-PEDS 2000 00:00:00 Completed [facility] Hep B, Adol or Pedi Dosage 2000 00:00:00 Completed [facility] IPV 2000 00:00:00 Completed [facility] DTaP/HIB 2000 00:00:00 Completed [facility] HEPATITIS A 2000 00:00:00 Completed [facility] HEPA-PEDS 2000 00:00:00 Completed [facility] Hep B, Adol or Pedi Dosage 2000 00:00:00 Completed [facility] IPV 2000 00:00:00 Completed [facility] DTaP/HIB 2000 00:00:00 Completed [facility] HEPATITIS A 2000 00:00:00 Completed [facility] HEPA-PEDS 2000 00:00:00 Completed [facility] Hep B, Adol or Pedi Dosage 2000 00:00:00 Completed [facility] IPV 2000 00:00:00 Completed [facility] DTaP/HIB 2000 00:00:00 Completed [facility] HEPATITIS A 2000 00:00:00 Completed [facility] HEPA-PEDS 2000 00:00:00 Completed [facility] Hep B, Adol or Pedi Dosage 2000 00:00:00 Completed [facility] IPV 2000 00:00:00 Completed [facility] DTaP/HIB 2000 00:00:00 Completed [facility] Hep B, Adol or Pedi Dosage 2000 00:00:00 Completed [facility] IPV 2000 00:00:00 Completed [facility] DTaP/HIB 2000 00:00:00 Completed [facility] Hep B, Adol or Pedi Dosage 2000 00:00:00 Completed [facility] IPV 2000 00:00:00 Completed [facility] DTaP/HIB 2000 00:00:00 Completed [facility] Hep B, Adol or Pedi Dosage 2000 00:00:00 Completed [facility] IPV 2000 00:00:00 Completed [facility] DTaP/HIB 2000 00:00:00 Completed [facility] Hep B, Adol or Pedi Dosage 2000 00:00:00 Completed [facility] IPV 2000 00:00:00 Completed [facility] DTaP/HIB 2000 00:00:00 Completed [facility] Hep B, Adol or Pedi Dosage 2000 00:00:00 Completed [facility] IPV 2000 00:00:00 Completed [facility] DTaP/HIB 2000 00:00:00 Completed [facility] Hep B, Adol or Pedi Dosage 2000 00:00:00 Completed [facility] IPV 2000 00:00:00 Completed [facility] DTaP/HIB 2000 00:00:00 Completed [facility] Hep B, Adol or Pedi Dosage 2000 00:00:00 Completed [facility] IPV 2000 00:00:00 Completed [facility] DTaP/HIB 2000 00:00:00 Completed [facility] Hep B, Adol or Pedi Dosage 2000 00:00:00 Completed [facility] IPV 2000 00:00:00 Completed [facility] DTaP/HIB 2000 00:00:00 Completed [facility] Hep B, Adol or Pedi Dosage 2000 00:00:00 Completed [facility] IPV 2000 00:00:00 Completed [facility] DTaP/HIB 2000 00:00:00 Completed [facility] Hep B, Adol or Pedi Dosage 2000 00:00:00 Completed [facility] IPV 2000 00:00:00 Completed [facility] DTaP/HIB 2000 00:00:00 Completed [facility] Hep B, Adol or Pedi Dosage 2000 00:00:00 Completed [facility] IPV 2000 00:00:00 Completed [facility] Hep B, Adol or Pedi Dosage 2000 00:00:00 Completed [facility] Hep B, Adol or Pedi Dosage 2000 00:00:00 Completed [facility] Hep B, Adol or Pedi Dosage 2000 00:00:00 Completed [facility] Hep B, Adol or Pedi Dosage 2000 00:00:00 Completed [facility] Hep B, Adol or Pedi Dosage 2000 00:00:00 Completed [facility] Hep B, Adol or Pedi Dosage 2000 00:00:00 Completed [facility] Hep B, Adol or Pedi Dosage 2000 00:00:00 Completed [facility] Hep B, Adol or Pedi Dosage 2000 00:00:00 Completed [facility] Hep B, Adol or Pedi Dosage 2000 00:00:00 Completed [facility] Hep B, Adol or Pedi Dosage 2000 00:00:00 Completed [facility] Hep B, Adol or Pedi Dosage 2000 00:00:00 Completed [facility] DTaP/HIB Unknown Completed [facility] Influenza Virus Vaccine - Whole Unknown Completed [facility] HEPATITIS A Unknown Completed [facility] HEPA-PEDS Unknown Completed [facility] Hep B, Adol or Pedi Dosage Unknown Completed [facility] HPV Unknown Completed [facility] Meningococcal Polysaccharide (groups A, C, Y and W-135) conjugate vaccine (MCV4P) Unknown Completed [facility] MMR Unknown Completed [facility] Pneumococcal 7 Conjugate, PCV7 (Prevnar7) Unknown Completed [facility] IPV Unknown Completed [facility] TDAP Unknown Completed [facility] Varicella (varivax)(chicken pox) Unknown Completed [facility] HPV9 Unknown Completed [facility] Influenza Virus Vaccine Quad .5 mL IM 6+ MO (FLUZONE/FLULAVAL/FL UARIX) Unknown Completed [facility] SARS-COV-2 COVID-19 PFIZER VACCINE Unknown Completed [facility] DTaP, Unspecified Formulation Unknown Completed [facility] DTaP/HIB Unknown Completed [facility] Influenza Virus Vaccine - Whole Unknown Completed [facility] HEPATITIS A Unknown Completed [facility] HEPA-PEDS Unknown Completed [facility] Hep B, Adol or Pedi Dosage Unknown Completed [facility] HPV Unknown Completed [facility] Meningococcal Polysaccharide (groups A, C, Y and W-135) conjugate vaccine (MCV4P) Unknown Completed [facility] MMR Unknown Completed [facility] Pneumococcal 7 Conjugate, PCV7 (Prevnar7) Unknown Completed [facility] IPV Unknown Completed [facility] TDAP Unknown Completed [facility] Varicella (varivax)(chicken pox) Unknown Completed [facility] HPV9 Unknown Completed [facility] Influenza Virus Vaccine Quad .5 mL IM 6+ MO (FLUZONE/FLULAVAL/FL UARIX) Unknown Completed [facility] SARS-COV-2 COVID-19 PFIZER VACCINE Unknown Completed [facility] DTaP, Unspecified Formulation Unknown Completed [facility] DTaP/HIB Unknown Completed [facility] Influenza Virus Vaccine - Whole Unknown Completed [facility] HEPATITIS A Unknown Completed [facility] HEPA-PEDS Unknown Completed [facility] Hep B, Adol or Pedi Dosage Unknown Completed [facility] HPV Unknown Completed [facility] Meningococcal Polysaccharide (groups A, C, Y and W-135) conjugate vaccine (MCV4P) Unknown Completed [facility] MMR Unknown Completed [facility] Pneumococcal 7 Conjugate, PCV7 (Prevnar7) Unknown Completed [facility] IPV Unknown Completed [facility] TDAP Unknown Completed [facility] Varicella (varivax)(chicken pox) Unknown Completed [facility] HPV9 Unknown Completed [facility] Influenza Virus Vaccine Quad .5 mL IM 6+ MO (FLUZONE/FLULAVAL/FL UARIX) Unknown Completed [facility] SARS-COV-2 COVID-19 PFIZER VACCINE Unknown Completed [facility] DTaP, Unspecified Formulation Unknown Completed [facility] Vital Signs Vital Name Observation Time Observation Value Comments S ource Systolic blood pressure 2023-12-02 11:53:00 123 mm[Hg] [facility] Diastolic blood pressure 2023-12-02 11:53:00 86 mm[Hg] [facility] Heart rate 2023-12-02 11:53:00 85 /min [facility] Body temperature 2023-12-02 11:53:00 35.89 Kamla [facility] Respiratory rate 2023-12-02 11:53:00 18 /min [facility] Body height 2023-12-02 11:53:00 149.9 cm [facility] Body weight 2023-12-02 11:53:00 70.58 kg [facility] BMI 2023-12-02 11:53:00 31.43 kg/m2 [facility] Systolic blood pressure 2022-12-07 14:16:00 109 mm[Hg] [facility] Diastolic blood pressure 2022-12-07 14:16:00 76 mm[Hg] [facility] Heart rate 2022-12-07 14:16:00 83 /min [facility] Body temperature 2022-12-07 14:16:00 36.5 Kamla [facility] Respiratory rate 2022-12-07 14:16:00 18 /min [facility] Body height 2022-12-07 14:16:00 149.9 cm [facility] Body weight 2022-12-07 14:16:00 69.264 kg [facility] BMI 2022-12-07 14:16:00 30.84 kg/m2 [facility] Oxygen saturation in Arterial blood by Pulse oximetry 2022-12-07 14:16:00 98 /min [facility] Systolic blood pressure 2022-11-17 20:09:00 128 mm[Hg] [facility] Diastolic blood pressure 2022-11-17 20:09:00 81 mm[Hg] [facility] Heart rate 2022-11-17 20:09:00 89 /min [facility] Body temperature 2022-11-17 20:09:00 36.5 Kamla [facility] Respiratory rate 2022-11-17 20:09:00 18 /min [facility] Body height 2022-11-17 20:09:00 149.9 cm [facility] Body weight 2022-11-17 20:09:00 69.088 kg [facility] BMI 2022-11-17 20:09:00 30.76 kg/m2 [facility] Systolic blood pressure 2022-11-08 21:37:25 115 mm[Hg] [facility] Diastolic blood pressure 2022-11-08 21:37:25 81 mm[Hg] [facility] Heart rate 2022-11-08 21:37:25 87 /min [facility] Body temperature 2022-11-08 21:37:25 36.72 Kamla [facility] Respiratory rate 2022-11-08 21:37:25 18 /min [facility] Oxygen saturation in Arterial blood by Pulse oximetry 2022-11-08 21:37:25 100 /min [facility] Body height 2022-11-08 17:59:00 149.9 cm [facility] Body weight 2022-11-08 17:59:00 70.308 kg [facility] BMI 2022-11-08 17:59:00 31.31 kg/m2 [facility] Systolic blood pressure 2022-11-01 15:18:00 123 mm[Hg] [facility] Diastolic blood pressure 2022-11-01 15:18:00 73 mm[Hg] [facility] Heart rate 2022-11-01 15:18:00 89 /[facility] 2022-11-01 15:18:00 36.11 Kamla [facility] Respiratory rate 2022-11-01 15:18:00 17 /min [facility] Body height 2022-11-01 15:18:00 151.1 cm [facility] Body weight 2022-11-01 15:18:00 68.402 kg [facility] BMI 2022-11-01 15:18:00 29.95 kg/m2 [facility] Systolic blood pressure 2022-06-16 13:15:00 112 mm[Hg] [facility] Diastolic blood pressure 2022-06-16 13:15:00 68 mm[Hg] [facility] Heart rate 2022-06-16 13:15:00 84 /min [facility] Body temperature 2022-06-16 13:15:00 36.61 Kamla [facility] Respiratory rate 2022-06-16 13:15:00 18 /min [facility] Body height 2022-06-16 13:15:00 149.9 cm [facility] Body weight 2022-06-16 13:15:00 68.448 kg [facility] BMI 2022-06-16 13:15:00 30.48 kg/m2 [facility] Systolic blood pressure 2021-12-21 20:59:00 139 mm[Hg] [facility] Diastolic blood pressure 2021-12-21 20:59:00 90 mm[Hg] [facility] Heart rate 2021-12-21 20:59:00 66 /min [facility] Body temperature 2021-12-21 20:59:00 36.44 Kamla [facility] Respiratory rate 2021-12-21 20:59:00 18 /min [facility] Body height 2021-12-21 20:59:00 152.4 cm [facility] Body weight 2021-12-21 20:59:00 68.221 kg [facility] BMI 2021-12-21 20:59:00 29.37 kg/m2 [facility] Systolic blood pressure 2021-08-14 15:50:00 132 mm[Hg] [facility] Diastolic blood pressure 2021-08-14 15:50:00 83 mm[Hg] [place] [facility] Heart rate 2021-08-14 15:50:00 84 /min [facility] Body temperature 2021-08-14 15:50:00 36.5 Kamla [facility] Respiratory rate 2021-08-14 15:50:00 18 /min [facility] Body height 2021-08-14 15:50:00 152.4 cm [facility] Body weight 2021-08-14 15:50:00 71.033 kg [facility] BMI 2021-08-14 15:50:00 30.58 kg/m2 [facility] Systolic blood pressure 2021-06-09 19:31:00 130 mm[Hg] [place] [facility] Diastolic blood pressure 2021-06-09 19:31:00 87 mm[Hg] [facility] Heart rate 2021-06-09 19:31:00 82 /min [facility] Body temperature 2021-06-09 19:31:00 36.22 Kamla [facility] Respiratory rate 2021-06-09 19:31:00 16 /min [facility] Body height 2021-06-09 19:31:00 152.4 cm [facility] Body weight 2021-06-09 19:31:00 71.215 kg [facility] BMI 2021-06-09 19:31:00 30.66 kg/m2 [facility] BP Systolic 2024-03-13 14:30:00 111 mm[Hg] Step kee Kowalski BP Diastolic 2024-03-13 14:30:00 77 mm[Hg] Edi Kowalski Weight Measured 2024-03-13 14:30:00 168.20 pounds Bert Kowalski Height Measured 2024-03-13 14:30:00 60.00 inches Bert Kowalski Body Temperature 2024-03-13 14:30:00 98.20 degrees Bert Kowalski Heart Rate 2024-03-13 14:30:00 88.00 /min Kadi en F Dex Respiratory Rate 2024-03-13 14:30:00 18.00 /min Bert F Dex BP Systolic 2023-12-10 12:38:00 113 mm[Hg] Step hen F Dex BP Diastolic 2023-12-10 12:38:00 80 mm[Hg] Edi phen F Dex Weight Measured 2023-12-10 12:38:00 155.40 pounds Bert F Dex Height Measured 2023-12-10 12:38:00 60.00 inches Bert F Dex Body Temperature 2023-12-10 12:38:00 98.20 degrees Bert F Dex Heart Rate 2023-12-10 12:38:00 93.00 /min Kadi en F Dex Respiratory Rate 2023-12-10 12:38:00 18.00 /min Bert F Dex BP Systolic 2020-10-10 14:24:00 106 mm[Hg] Step hen F Dex BP Diastolic 2020-10-10 14:24:00 70 mm[Hg] Edi phen F Dex Weight Measured 2020-10-10 14:24:00 157.00 pounds Bert F Dex Height Measured 2020-10-10 14:24:00 60.00 inches Bert F Dex Body Temperature 2020-10-10 14:24:00 98.80 degrees Bert F Dex Heart Rate 2020-10-10 14:24:00 82.00 /min Kadi en F Dex Respiratory Rate 2020-10-10 14:24:00 18.00 /min Bert F Dex BP Systolic 2019-01-11 15:08:00 119 mm[Hg] Step hen F Dex BP Diastolic 2019-01-11 15:08:00 74 mm[Hg] Edi phen F Dex Weight Measured 2019-01-11 15:08:00 134.20 pounds Bert F Dex Height Measured 2019-01-11 15:08:00 60.00 inches Bert F Dex Body Temperature 2019-01-11 15:08:00 98.60 degrees Bert F Dex Heart Rate 2019-01-11 15:08:00 84.00 /min Kadi en F Dex Respiratory Rate 2019-01-11 15:08:00 16.00 /min Bert F Dex BP Diastolic 2018-12-21 08:32:00 59 mm[Hg] Edi phen F Dex Weight Measured 2018-12-21 08:32:00 134.20 pounds Bert F Dex Height Measured 2018-12-21 08:32:00 60.00 inches Bert F Dex Body Temperature 2018-12-21 08:32:00 98.50 degrees Bert F Dex Heart Rate 2018-12-21 08:32:00 72.00 /min Kadi en F Dex Respiratory Rate 2018-12-21 08:32:00 18.00 /min Bert F Dex BP Systolic 2018-12-21 08:32:00 105 mm[Hg] Step hen F Dex BP Systolic 2018-11-16 14:33:00 126 mm[Hg] Step hen F Dex BP Diastolic 2018-11-16 14:33:00 67 mm[Hg] Edi phen F Dex Weight Measured 2018-11-16 14:33:00 134.40 pounds Bert F Dex Height Measured 2018-11-16 14:33:00 60.00 inches Bert F Dex Body Temperature 2018-11-16 14:33:00 98.40 degrees Bert F Dex Heart Rate 2018-11-16 14:33:00 81.00 /min Kadi en F Dex Respiratory Rate 2018-11-16 14:33:00 16.00 /min Bert F Dex BP Systolic 2018-06-30 14:22:00 111 mm[Hg] Step hen F Dex BP Diastolic 2018-06-30 14:22:00 75 mm[Hg] Edi phen F Dex Weight Measured 2018-06-30 14:22:00 135.00 pounds Bert F Dex Height Measured 2018-06-30 14:22:00 60.00 inches Bert F Dex Body Temperature 2018-06-30 14:22:00 98.40 degrees Bert F Dex Heart Rate 2018-06-30 14:22:00 81.00 /min Kadi en F Dex Respiratory Rate 2018-06-30 14:22:00 22.00 /min Bert F Dex BP Systolic 2018-01-02 15:20:00 99 mm[Hg] Step hen F Dex BP Diastolic 2018-01-02 15:20:00 64 mm[Hg] Edi phen F Dex Weight Measured 2018-01-02 15:20:00 139.20 pounds Bert F Dex Height Measured 2018-01-02 15:20:00 59.45 inches Bert F Dex Body Temperature 2018-01-02 15:20:00 97.80 degrees Bert F Dex Heart Rate 2018-01-02 15:20:00 81.00 /min Kadi en F Dex Respiratory Rate 2018-01-02 15:20:00 17.00 /min Bert F Dex BP Systolic 2017-03-16 11:12:00 109 mm[Hg] Step hen F Dex BP Diastolic 2017-03-16 11:12:00 67 mm[Hg] Edi phen F Dex Weight Measured 2017-03-16 11:12:00 131.00 pounds Bert F Dex Height Measured 2017-03-16 11:12:00 60.00 inches Bert F Dex Body Temperature 2017-03-16 11:12:00 98.80 degrees Bert F Dex Heart Rate 2017-03-16 11:12:00 82.00 /min Kadi en F Dex Respiratory Rate 2017-03-16 11:12:00 Bert F Dex BP Systolic 2017-03-07 15:22:00 107 mm[Hg] Step hen F Dex BP Diastolic 2017-03-07 15:22:00 75 mm[Hg] Edi phen F Dex Weight Measured 2017-03-07 15:22:00 130.40 pounds Bert F Dex Height Measured 2017-03-07 15:22:00 60.00 inches Bert F Dex Body Temperature 2017-03-07 15:22:00 99.10 degrees Bert F Dex Heart Rate 2017-03-07 15:22:00 86.00 /min Kadi en F Dex Respiratory Rate 2017-03-07 15:22:00 18.00 /min Bert F Dex BP Systolic 2014-08-12 09:25:00 109 mm[Hg] Step hen F Dex BP Diastolic 2014-08-12 09:25:00 62 mm[Hg] Edi phen F Dex Weight Measured 2014-08-12 09:25:00 115.00 pounds Bert F Dex Height Measured 2014-08-12 09:25:00 59.50 inches Bert F Dex Body Temperature 2014-08-12 09:25:00 98.30 degrees Bert F Dex Heart Rate 2014-08-12 09:25:00 88.00 /min Kadi en F Dex Respiratory Rate 2014-08-12 09:25:00 20.00 /min Bert F Dex Procedures Procedure Date / Time Performed Performing Clinician Source FREE T4 2022-12-07 15:17:00 Baldo Mcnamara Un [facility] THYROID STIMULATING HORMONE 2022-12-07 15:17:00 Baldo Mcnamara [facility] COMP. METABOLIC PANEL (74651) 2022-12-07 15:17:00 Baldo Mcnamara [facility] LIPID PANEL (01908)(TOTAL CHOLESTEROL, TRIGLYCERIDES, HDL) 2022-12-07 15:17:00 Baldo Mcnamara [facility] CBC WITH DIFF 2022-12-07 15:17:00 [facility] GLYCOSYLATED HEMOGLOBIN (A1C) 2022-12-07 15:17:00 Baldo Mcnamara [facility] FREE T3 2022-12-07 15:17:00 Baldo Mcnamara Un [facility] POCT TEST 2022-11-17 20:36:00 Kieran Lagunas [facility] POCT URINALYSIS W/O SPECIFIC GRAVITY 2022-11-17 20:23:00 Carolyn Colon [facility] US FIRST TRIMESTER LESS THAN 14 WEEKS 2022-11-08 20:43:28 Nora Crooks [facility] TOTAL BETA HCG ASSAY 2022-11-08 18:44:00 Jean Crooks [facility] CBC WITH DIFF 2022-11-08 18:44:00 Nora Crooks [facility] POCT URINALYSIS W/O SPECIFIC GRAVITY 2022-11-01 15:22:00 Carolyn Colon [facility] POCT TEST 2022-11-01 15:21:00 Latosha Colon [facility] REPORT OF 2022-11-01 05:01:00 Doctor U tiera, [place] [facility] HCV ANTIBODY 2022-06-16 14:00:00 Leonid Davies [facility] GC & CHLAMYDIA AMPLIFIED ASSAY 2022-06-16 14:00:00 Leonid Davies [facility] GALV ONLY - VAGINAL PATHOGENS BY NUCLEIC ACID TESTING 2022-06-16 14:00:00 Leonid Davies [facility] HIV 1/2 AG-AB WITH REFLEX 2022-06-16 14:00:00 Leonid Davies [facility] SYPHILIS IGG/IGM 2022-06-16 14:00:00 Leonid Davies [facility] "RWSP DESIRAE ONLY" FLU VACC(), 6+ MONTHS, IM, QUAD (FLUZONE/FLULAVAL/FLUAR IX) 2022-06-16 13:39:02 Leonid Davies [facility] POCT TEST 2022-06-16 00:00:00 Satya Davies [facility] GARDASIL 9 (HPV 9V) VACCINE 2021-12-21 20:58:37 Katie Olguin [facility] POCT TEST 2021-08-14 16:05:00 Onel Emmanuel [facility] GARDASIL 9 (HPV 9V) VACCINE 2021-08-14 15:40:58 Alicia Emmanuel [facility] GARDASIL 9 (HPV 9V) VACCINE 2021-06-09 19:58:27 Betzy Lagunas [facility] POCT TEST 2021-06-09 19:56:00 Kieran Lagunas [facility] Encounters Start Date/Time End Date/Time Encounter Type Admission Type Attending [facility] Care Facility Care Department Encounter ID Source 2021-04-10 14:02:20 Emergency [facility] [id number] [facility] 2024-04-04 10:29:59 2024-04-04 10:29:59 Outpatient S[facility] [id number] Bert Kowalski 2024-03-13 14:09:51 2024-03-13 14:09:51 Outpatient [facility] [id number] Bert Kowalski 2024-03-13 00:00:00 2024-03-13 00:00:00 Outpatient Visit [facility] [id number] Bert Kowalski 2023-12-10 12:34:47 2023-12-10 12:34:47 Outpatient [facility] [id number] Bert Kowalski 2023-12-10 00:00:00 2023-12-10 00:00:00 Outpatient Visit [facility] [id number] Bert Kowalski 2023-12-02 06:45:00 2023-12-02 07:32:41 Outpatient R SYMONE DOMINGUEZ [facility] [id number] [facility] 2023-12-02 06:45:00 2023-12-02 07:32:41 Office Visit Symone Dominguez [facility] 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 [facility] [id number] 350.1.13.10 4.2.7.2.686 [id number] [facility] 2023-11-17 08:00:00 2023-11-17 08:00:00 Outpatient R ALICIA EMMANUEL [facility] [id number] [facility] 2023-11-17 07:30:00 2023-11-17 07:30:00 Outpatient R [facility] [id number] [facility] 2023-05-13 09:00:00 2023-05-13 09:00:00 Outpatient R JOSE HURLEY [facility] [id number] [facility] 2022-12-22 00:00:00 2022-12-22 00:00:00 Patient Secure Msg Doctor Unassigned, [place] [facility] ..840.114 350.1.13.10 4.2.7.2.686 [id number] [facility] 2022-12-09 00:00:00 2022-12-09 00:00:00 Patient Secure Msg Baldo Mcnamara [facility] ..840.114 350.1.13.10 4.2.7.2.686 [id number] [facility] 2022-12-07 10:15:00 2022-12-07 10:25:08 Manager Transportation Visit 2, [facility] Baldo Mcnamara [facility] 1.2.840.114 350.1.13.10 4.2.7.2.686 [id number] [facility] 2022-12-07 09:00:00 2022-12-07 09:48:35 Outpatient R BALDO MCNAMARA [facility]UKWU [facility] [id number] [facility] 2022-12-07 09:00:00 2022-12-07 09:48:35 Office Visit Baldo Mcnamara [facility] 1.2.840.114 350.1.13.10 4.2.7.2.686 [id number] [facility] 2022-12-03 08:00:00 2022-12-03 08:00:00 Outpatient R BALDO MCNAMARA BALDO [facility] [id number] [facility] 2022-11-17 15:00:00 2022-11-17 17:14:47 Outpatient R BETZY LAGUNAS [facility] [id number] [facility] 2022-11-17 15:00:00 2022-11-17 15:15:00 Routine Visit Betzy Lagunas Jennifer A [facility] 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 [facility] 1.2.840.114 350.1.13.10 4.2.7.2.686 [id number] [facility] 2022-11-15 16:15:00 2022-11-15 16:15:00 Outpatient CAROLYN JEWELL [facility] [id number] [facility] 2022-11-15 09:30:00 2022-11-15 09:30:00 Outpatient CAROLYN JEWELL [facility] [id number] [facility] 2022-11-14 00:00:00 2022-11-14 00:00:00 Telephone Carolyn Colon [facility] 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 [facility] 1.2840.114 350.1.13.10 4.2.7.2.686 [id number] [facility] 2022-11-11 14:45:00 2022-11-11 14:45:00 Outpatient R CAROLYN COLON [facility] [id number] [facility] 2022-11-08 13:21:00 2022-11-08 16:48:00 Emergency X [facility] [id number] [facility] 2022-11-08 13:21:00 2022-11-08 16:48:00 Emergency [facility] ([facility]) 1.2.840.114 350.1.13.10 4.2.7.2.686 [id number] [facility] 2022-11-08 00:00:00 2022-11-08 00:00:00 Nurse Triage Otilio Garcia [facility] 1.2.840.114 350.1.13.10 4.2.7.2.686 [id number] [facility] 2022-11-08 00:00:00 2022-11-08 00:00:00 Nurse Triage Suzy Robertson [facility] 1.2.840.114 350.1.13.10 4.2.7.2.686 [id number] [facility] 2022-11-06 00:00:00 2022-11-06 00:00:00 Patient Secure Msg Carolyn Colon [facility] 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 [facility] 1.2.840.114 350.1.13.10 4.2.7.2.686 [id number] [facility] 2022-11-01 10:00:00 2022-11-01 11:32:13 Outpatient R CAROLYN COLON [facility] [id number] [facility] 2022-11-01 10:00:00 2022-11-01 11:32:13 Initial Visit Carolyn Colon [facility] 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 [facility] 1.2.840.114 350.1.13.10 4.2.7.2.686 [id number] [facility] 2022-11-01 00:00:00 2022-11-01 00:00:00 Orders Only Doctor Unassigned, [place] [facility] 1.2840.114 350.1.13.10 4.2.7.2.686 [id number] [facility] 2022-06-17 00:00:00 2022-06-17 00:00:00 Patient Secure Msg Leonid Davies [facility] 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 [facility] 1.2.840.114 350.1.13.10 4.2.7.2.686 [id number] [facility] 2022-06-17 00:00:00 2022-06-17 00:00:00 Telephone Leonid Davies [facility] 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 [facility] 1.2.840.114 350.1.13.10 4.2.7.2.686 [id number] [facility] 2022-06-16 07:00:00 2022-06-16 07:52:51 Outpatient R LEONID DAVIES JORDYN NCGAURAV [facility] [id number] [facility] 2022-06-16 07:00:00 2022-06-16 07:52:51 Office Visit Leonid Davies [facility] 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 [facility] .840.114 350.1.13.10 4.2.7.2.686 [id number] [facility] 2022-06-09 13:45:00 2022-06-09 13:45:00 Outpatient R ALICIA EMMANUEL [facility] [id number] [facility] 2021-12-21 15:00:00 2021-12-21 15:23:30 Outpatient R KATIE OLGUIN [facility] [id number] [facility] 2021-12-21 15:00:00 2021-12-21 15:23:30 [facility] 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 [facility] .840.114 350.1.13.10 4.2.7.2.686 [id number] [facility] 2021-12-18 08:30:00 2021-12-18 08:30:00 Outpatient R OLGUINÁNGEL JhaPilar [facility] [id number] [facility] 2021-12-15 09:30:00 2021-12-15 09:30:00 Outpatient R KATIE OLGUIN [facility] [id number] [facility] 2021-09-04 10:30:00 2021-09-04 10:30:00 Outpatient R ALICIA EMMANUEL [facility] [id number] [facility] 2021-08-14 09:30:00 2021-08-14 10:03:38 Outpatient R KATIE OLGUIN [facility] [id number] [facility] 2021-08-14 09:30:00 2021-08-14 10:03:38 Nurse Visit Visit, DianachKatie San [facility] 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 [facility] .840.114 350.1.13.10 4.2.7.2.686 [id number] [facility] 2021-08-11 13:00:00 2021-08-11 13:00:00 Outpatient R JANNETH BETZY [facility] [id number] [facility] 2021-06-09 13:00:00 2021-06-09 14:27:20 Outpatient R JANNETHAKANKSHABETZY [facility] [id number] [facility] 2021-06-09 13:00:00 2021-06-09 14:27:20 Office Visit Betzy Lagunas [facility] 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 [facility] MATERNAL & CHILD [facility] 1.2.840.114 350.1.13.10 4.2.7.2.686 [id number] [facility] 2021-06-09 13:00:00 2021-06-09 14:27:20 Outpatient R JANNETHAKANKSHABETZY [facility] [id number] [facility] 2020-02-03 19:48:00 2020-02-04 02:52:00 Emergency Isaiah Valadez [facility] ([facility]) 1..840.114 350.1.13.10 4.2.7.2.686 [id number] [facility] 2019-11-12 10:00:00 2019-11-12 10:00:00 Outpatient R [facility] [id number] [facility] 2019-10-29 12:46:40 2019-10-29 13:53:23 Office Visit Katie Olguin [facility] 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 [facility] MATERNAL & CHILD [facility] 1..840.114 350.1.13.10 4.2.7.2.686 [id number] [facility] 2019-10-29 12:45:00 2019-10-29 12:45:00 Outpatient R KATIE OLGUIN [facility] [id number] [facility] 2019-10-24 00:00:00 2019-10-24 00:00:00 Telephone Alicia Emmanuel [facility] 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 [facility] 1.2.840.114 350.1.13.10 4.2.7.2.686 [id number] [facility] 2019-02-08 15:05:03 2019-02-08 15:57:00 Office Visit Alicia Emmanuel [facility] 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 [facility] 1.2.840.114 350.1.13.10 4.2.7.2.686 [id number] [facility] 2019-02-08 00:00:00 2019-02-08 00:00:00 Orders Only Doctor Unassigned, [place] [facility] 1.2.840.114 350.1.13.10 4.2.7.2.686 [id number] [facility] 2019-01-31 14:36:13 2019-01-31 15:14:06 Office Visit Alicia Emmanuel [facility] 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 [facility] CH[facility] 1.2.840.114 350.1.13.10 4.2.7.2.686 [id number] [facility] 2019-01-30 00:00:00 2019-01-30 00:00:00 Telephone Alicia Emmanuel [facility] 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 [facility] 1.2.840.114 350.1.13.10 4.2.7.2.686 [id number] [facility] Results Test Description Test Time Test Comments Results Result Co mments Source VITAMIN D, 25 [id number] 00:00:00* Test Item Value Reference Range Interpretation Comme [facility] VITAMIN D, 25 OH (test code = 4958) 30 NG/ML Bert F DexVITAMIN D, 25 [id number] 00:28:43* Test Item Value Reference Range Interpretation Comme [facility] VITAMIN D, 25 OH (test code = 4958) 18 NG/ML SEE BELOW L NOTE: 25-HYDR OXYVITAMIN D ASSAY INCLUDES 25-HYDROXYVITAMIN D2 AND D3. INTERPRETIVE RANGES PEDIATRIC (<17 YEARS) . . . . . . . . . . . NG/ML 20-100ADULT: INSUFFICIENT . . . . . . . . . . . . . . NG/ML <20 SUBOPTIMAL . . . . . . . . . . . . . . . NG/ML 20-29 OPTIMAL . . . . . . . . . . . . . . . . . NG/ML 30-100 UNLESS OTHERWISE INDICATED, ALL TESTING PERFORMED AT [facility] [address] [place] [address] TRANSFER AGENT: ELO BLANTON M.D. CLIA NUMBER [id number] [facility] [place]. [id number] VITAMIN D, 25 [id number] 00:00:00* Test Item Value Reference Range Interpretation Comme [facility] VITAMIN D, 25 OH (test code = 4958) 18 NG/ML Bert KowalskiVITAMIN D, 25 [id number] 00:00:00* Test Item Value Reference Range Interpretation Comme [facility] VITAMIN D, 25 OH (test code = 4958) 18 NG/ML Bert KowalskiTSH, THIRD [id number] 23:31:10* Test Item Value Reference Range Interpretation Comme [facility] TSH, THIRD GENERATION (test code = 2821) 0.693 UIU/ML 0.400-4.100 COMPREHENSIVE METABOLIC [id number] 23:31:04* Test Item Value Reference Range Interpretation Comme [facility] GLUCOSE (test code = 2217) 82 MG/DL 70-99 BUN (test code = 2208) 8 MG/DL 6-20 CREATININE (test code = 2214) 0.58 MG/DL 0.60-1.30 L eGFR (2020 CKD-EPI) (test code = 41382) 130 ML/MIN/1.73 >60 CALC BUN/CREAT (test code = 2235) 14 RATIO 6-28 SODIUM (test code = 2231) 136 MEQ/L 133-146 POTASSIUM (test code = 2228) 4.2 MEQ/L 3.5-5.4 CHLORIDE (test code = 2215) 100 MEQ/L 95-107 CARBON DIOXIDE (test code = 2206) 22 MEQ/L 19-31 CALCIUM (test code = 2209) 9.4 MG/DL 8.5-10.5 PROTEIN, TOTAL (test code = 2229) 7.4 G/DL 6.1-8.3 ALBUMIN (test code = 2201) 4.5 G/DL 3.5-5.2 CALC GLOBULIN (test code = 2240) 2.9 G/DL 1.9-3.7 CALC A/G RATIO (test code = 2234) 1.6 RATIO 1.0-2.6 BILIRUBIN, TOTAL (test code = 2207) 0.3 MG/DL <=1.2 ALKALINE PHOSPHATASE (test code = 220) 59 U/L 40-117 AST (test code = 2218) 17 U/L 9-40 ALT (test code = 221) 13 U/L 5-40 LIPID [id number] 23:31:04* Test Item Value Reference Range Interpretation Comme nts CHOLESTEROL (test code = 0) 151 MG/DL <200 TRIGLYCERIDES (test code = 2232) 39 MG/DL <150 HDL CHOLESTEROL (test code = 2219) 74 MG/DL >39 CALC LDL CHOL (test code = 2236) 66 MG/DL <100 NOTE: CALCULATED LDL IS BASED ON SAHARA-BERTRAND METHOD WHICHINCLUDES ADJUSTABLE TRIGLYCERIDE:VLDL CHOLESTEROL RATIO.THIS FACTOR VARIES BY MEASURED TRIGLYCERIDE AND NON-HDLCHOLESTEROL CONCENTRATIONS WITH INCREASED CALCULATED LDL SEENIN HIGHER TRIGLYCERIDE OR LOWER NON-HDL SPECIMENS. FOR MOREINFORMATION, SEE CLIENT ANNOUNCEMENT AT [email or web address] RATIO LDL/HDL (test code = 223) 0.89 RATIO <3.22 CBC W/AUTO DIFF WITH [id number] 03:40:41* Test Item Value Reference Range Interpretation Comme nts WBC (test code = 1001) 7.2 K/UL 3.5-11.0 RBC (test code = 1002) 4.16 M/UL 3.80-5.40 HEMOGLOBIN (test code = 1003) 11.4 G/DL 11.5-15.5 L HEMATOCRIT (test code = 1004) 36.9 % 34.0-45.0 MCV (test code = 1005) 88.7 fL 80.0-99.0 MCH (test code = 1006) 27.4 PG 25.0-33.0 MCHC (test code = 1007) 30.9 G/DL 31.0-36.0 L RDW (test code = 1038) 13.0 % 11.5-15.0 NEUTROPHILS (test code = 1008) 63.0 % LYMPHOCYTES (test code = 1010) 22.5 % MONOCYTES (test code = 1011) 12.1 % EOSINOPHILS (test code = 1012) 1.7 % BASOPHILS (test code = 1013) 0.4 % IMMATURE GRANULOCYTES (test code = 1036) 0.3 % NUCLEATED RBCS (test code = 1065) 0.0 /100 WBC'S See_Comment [Automated messa ge] The system which generated this result transmitted reference range: 0.0. The reference range was not used to interpret this result as normal/abnormal. PLATELET COUNT (test code = 1015) 327 K/UL 130-400 ABSOLUTE NEUTROPHILS (test code = 1066) 4.53 K/UL 1.50-7.50 ABSOLUTE LYMPHOCYTES (test code = 1067) 1.62 K/UL 1.00-4.00 ABSOLUTE MONOCYTES (test code = 1068) 0.87 K/UL 0.20-1.00 ABSOLUTE EOSINOPHILS (test code = 1040) 0.12 K/UL 0.00-0.50 ABSOLUTE BASOPHILS (test code = 1069) 0.03 K/UL 0.00-0.20 ABS IMMATURE GRANULOCYTES (test code = 1020) 0.02 K/UL 0.00-0.10 ABS NUCLEATED RBCS (test code = 01567) 0.00 K/UL 0.00-0.11 HEMOGLOBIN [id number] 03:11:36* Test Item Value Reference Range Interpretation Comme nts HEMOGLOBIN A1c (test code = 99695) 5.1 % 4.2-5.6 CBC W/AUTO [id number] 00:00:00* Test Item Value Reference Range Interpretation Comme nts WBC (test code = 1001) 7.2 K/UL RBC (test code = 1002) 4.16 M/UL HEMOGLOBIN (test code = 1003) 11.4 G/DL HEMATOCRIT (test code = 1004) 36.9 % MCV (test code = 1005) 88.7 fL MCH (test code = 1006) 27.4 PG MCHC (test code = 1007) 30.9 G/DL RDW (test code = 1038) 13.0 % NEUTROPHILS (test code = 1008) 63.0 % LYMPHOCYTES (test code = 1010) 22.5 % MONOCYTES (test code = 1011) 12.1 % EOSINOPHILS (test code = 1012) 1.7 % BASOPHILS (test code = 1013) 0.4 % IMMATURE GRANULOCYTES (test code = 1036) 0.3 % NUCLEATED RBCS (test code = 1065) 0.0 /100WBC'S PLATELET COUNT (test code = 1015) 327 K/UL ABSOLUTE NEUTROPHILS (test c ode = 1066) 4.53 K/UL ABSOLUTE LYMPHOCYTES (test c ode = 1067) 1.62 K/UL ABSOLUTE MONOCYTES (test cod e = 1068) 0.87 K/UL ABSOLUTE EOSINOPHILS (test c ode = 1040) 0.12 K/UL ABSOLUTE BASOPHILS (test cod e = 1069) 0.03 K/UL ABS IMMATURE GRANULOCYTES (t est code = 1020) 0.02 K/UL ABS NUCLEATED RBCS (test cod e = 28598) 0.00 K/UL Bert KowalskiCOMPREHENSIVE METABOLIC [id number] 00:00:00* Test Item Value Reference Range Interpretation Comme nts GLUCOSE (test code = 2217) 82 MG/DL BUN (test code = 2208) 8 MG/DL CREATININE (test code = 2214) 0.58 MG/DL eGFR (2020 CKD-EPI) (test code = 80305) 130 ML/MIN/1.73 CALC BUN/CREAT (test code = 2235) 14 RATIO SODIUM (test code = 2231) 136 MEQ/L POTASSIUM (test code = 2228) 4.2 MEQ/L CHLORIDE (test code = 2215) 100 MEQ/L CARBON DIOXIDE (test code = 2206) 22 MEQ/L CALCIUM (test code = 2209) 9.4 MG/DL PROTEIN, TOTAL (test code = 2229) 7.4 G/DL ALBUMIN (test code = 2201) 4.5 G/DL CALC GLOBULIN (test code = 2240) 2.9 G/DL CALC A/G RATIO (test code = 2234) 1.6 RATIO BILIRUBIN, TOTAL (test code = 2207) 0.3 MG/DL ALKALINE PHOSPHATASE (test code = 2204) 59 U/L AST (test code = 2218) 17 U/L ALT (test code = 2219) 13 U/L Bert [id number] 00:00:00* Test Item Value Reference Range Interpretation Comme jeanette TSH, THIRD GENERATION (test code = 2821) 0.693 UIU/ML Bert KowalskiLIPID [id number] 00:00:00* Test Item Value Reference Range Interpretation Comme nts CHOLESTEROL (test code = 2210) 151 MG/DL TRIGLYCERIDES (test code = 2232) 39 MG/DL HDL CHOLESTEROL (test code = 2220) 74 MG/DL CALC LDL CHOL (test code = 2237) 66 MG/DL RISK RATIO LDL/HDL (test cod e = 2238) 0.89 RATIO Bert KowalskiHEMOGLOBIN [id number] 00:00:00* Test Item Value Reference Range Interpretation Comme jeanette HEMOGLOBIN A1c (test code = 98290) 5.1 % Bert KowalskiCBC W/AUTO [id number] 00:00:00* Test Item Value Reference Range Interpretation Comme nts WBC (test code = 1001) 7.2 K/UL RBC (test code = 1002) 4.16 M/UL HEMOGLOBIN (test code = 1003) 11.4 G/DL HEMATOCRIT (test code = 1004) 36.9 % MCV (test code = 1005) 88.7 fL MCH (test code = 1006) 27.4 PG MCHC (test code = 1007) 30.9 G/DL RDW (test code = 1038) 13.0 % NEUTROPHILS (test code = 1008) 63.0 % LYMPHOCYTES (test code = 1010) 22.5 % MONOCYTES (test code = 1011) 12.1 % EOSINOPHILS (test code = 1012) 1.7 % BASOPHILS (test code = 1013) 0.4 % IMMATURE GRANULOCYTES (test code = 1036) 0.3 % NUCLEATED RBCS (test code = 1065) 0.0 /100WBC'S PLATELET COUNT (test code = 1015) 327 K/UL ABSOLUTE NEUTROPHILS (test c ode = 1066) 4.53 K/UL ABSOLUTE LYMPHOCYTES (test c ode = 1067) 1.62 K/UL ABSOLUTE MONOCYTES (test cod e = 1068) 0.87 K/UL ABSOLUTE EOSINOPHILS (test c ode = 1040) 0.12 K/UL ABSOLUTE BASOPHILS (test cod e = 1069) 0.03 K/UL ABS IMMATURE GRANULOCYTES (t est code = 1020) 0.02 K/UL ABS NUCLEATED RBCS (test cod e = 36131) 0.00 K/UL Bert KowalskiCOMPREHENSIVE METABOLIC [id number] 00:00:00* Test Item Value Reference Range Interpretation Comme nts GLUCOSE (test code = 2217) 82 MG/DL BUN (test code = 2208) 8 MG/DL CREATININE (test code = 2214) 0.58 MG/DL eGFR (2020 CKD-EPI) (test code = 79890) 130 ML/MIN/1.73 CALC BUN/CREAT (test code = 2235) 14 RATIO SODIUM (test code = 2231) 136 MEQ/L POTASSIUM (test code = 2228) 4.2 MEQ/L CHLORIDE (test code = 2215) 100 MEQ/L CARBON DIOXIDE (test code = 2206) 22 MEQ/L CALCIUM (test code = 2209) 9.4 MG/DL PROTEIN, TOTAL (test code = 2229) 7.4 G/DL ALBUMIN (test code = 2201) 4.5 G/DL CALC GLOBULIN (test code = 2240) 2.9 G/DL CALC A/G RATIO (test code = 2234) 1.6 RATIO BILIRUBIN, TOTAL (test code = 2207) 0.3 MG/DL ALKALINE PHOSPHATASE (test code = 2204) 59 U/L AST (test code = 2218) 17 U/L ALT (test code = 2219) 13 U/L Bert [id number] 00:00:00* Test Item Value Reference Range Interpretation Comme nts TSH, THIRD GENERATION (test code = 2821) 0.693 UIU/ML Bert KowalskiLIPID [id number] 00:00:00* Test Item Value Reference Range Interpretation Comme nts CHOLESTEROL (test code = 2210) 151 MG/DL TRIGLYCERIDES (test code = 2232) 39 MG/DL HDL CHOLESTEROL (test code = 2220) 74 MG/DL CALC LDL CHOL (test code = 2237) 66 MG/DL RISK RATIO LDL/HDL (test cod e = 2238) 0.89 RATIO Bert KowlaskiHEMOGLOBIN [id number] 00:00:00* Test Item Value Reference Range Interpretation Comme nts HEMOGLOBIN A1c (test code = 85342) 5.1 % Bert Johnson AustinPOCT [id number] 20:36:00* Test Item Value Reference Range Interpretation Comme nts POCT PREG (test code = 1605) Negative On board controls acceptable with C Line (test code = 3574) Yes POCT PREG LOT # (test code = 3575) POCT PREG TEST DATE ( test code = 3576) [facility] URINALYSIS W/O SPECIFIC [id number] 20:23:00* Test Item Value Reference Range Interpretation Comme nts POCT PH U (test code = 3254) 5 mg/dl 5-8 POCT U LEUK EST (test code = 3263) neg Negative - Negative POCT U NIT (test code = 3262) neg Negative - Negati ve POCT U PROT (test code = 3259) neg Negative - Negat nain POCT U GLU (test code = 3256) neg Negative - Negati ve POCT U KETONE (test code = 3258) neg Negative - Neg ative POCT U BLD (test code = 3257) neg Negative - Negati ve Lab Interpretation (test cod e = 76686-4) Normal [facility] BETA HCG [id number] 19:31:22* Test Item Value Reference Range Interpretation Comme nts BETA HCG (test code = 0286323599) 360.19 See_Comment [Automated [employer] ge] The system which generated this result transmitted reference range: Non- female and male patients: <5 mIU/mL. The reference range was not used to interpret this result as normal/abnormal. LORENA (test code = LORENA) Gestational Age ?Range (mIU/mL) 1-10 ?Weeks ?[id number] Weeks ?[id number] Weeks ?[id number] Weeks ?4041-238746 Biotin has been reported to cause a negative bias, interpret results relative to patient's use of biotin. [facility] WITH [id number] 18:49:59* Test Item Value Reference Range Interpretation Comme nts WBC (test code = 6690-2) 8.82 See_Comment [Automated [employer] ge] The system which generated this result transmitted reference range: 4.30 - 11.10 10*3/?L. The reference range was not used to interpret this result as normal/abnormal. RBC (test code = 789-8) 4.20 See_Comment [Automated [employer] ge] The system which generated this result transmitted reference range: 3.93 - 5.25 10*6/?L. The reference range was not used to interpret this result as normal/abnormal. HGB (test code = 718-7) 13.1 g/dL 11.6-15.0 HCT (test code = 4544-3) 37.9 % 35.7-45.2 MCV (test code = 787-2) 90.2 fL 80.6-95.5 MCH (test code = 785-6) 31.2 pg 25.9-32.8 MCHC (test code = 786-4) 34.6 g/dL 31.6-35.1 RDW-SD (test code = 49638-7) 40.4 fL 39.0-49.9 RDW-CV (test code = 788-0) 12.4 % 12.0-15.5 PLT (test code = 777-3) 281 See_Comment [Automated [employer] ge] The system which generated this result transmitted reference range: 166 - 358 10*3/?L. The reference range was not used to interpret this result as normal/abnormal. MPV (test code = 48974-4) 9.6 fL 9.5-12.9 NRBC/100 WBC (test code = 5463600532) 0.0 See_Comment [Automated me ssage] The system which generated this result transmitted reference range: 0.0 - 10.0 /100 WBCs. The reference range was not used to interpret this result as normal/abnormal. NRBC x10^3 (test code = 7237416478) See_Comment [Automated me ssage] The system which generated this result transmitted reference range: 10*3/?L. The reference range was not used to interpret this result as normal/abnormal. GRAN MAT (NEUT) % (test code = 770-8) 67.1 % IMM GRAN % (test code = 1501659378) 0.30 % LYMPH % (test code = 736-9) 21.3 % MONO % (test code = 5905-5) 8.5 % EOS % (test code = 713-8) 2.2 % BASO % (test code = 706-2) 0.6 % GRAN MAT x10^3(ANC) (test code = 0522609954) 5.92 10*3/uL 1.88-7.09 IMM GRAN x10^3 (test code = 8395096951) 0.03 10*3/uL 0.00-0.06 LYMPH x10^3 (test code = 731-0) 1.88 10*3/uL 1.32-3.29 MONO x10^3 (test code = 742-7) 0.75 10*3/uL 0.33-0.92 EOS x10^3 (test code = 711-2) 0.19 10*3/uL 0.03-0.39 BASO x10^3 (test code = 704-7) 0.05 10*3/uL 0.01-0.07 [facility] URINALYSIS W/O SPECIFIC [id number] 15:22:00* Test Item Value Reference Range Interpretation Comme nts POCT PH U (test code = 3254) 5 mg/dl 5-8 POCT U LEUK EST (test code = 3263) neg Negative - Negative POCT U NIT (test code = 3262) positive Negative - Negati ve POCT U PROT (test code = 3259) trace Negative - Negat nain POCT U GLU (test code = 3256) neg Negative - Negati ve POCT U KETONE (test code = 3258) neg Negative - Neg ative POCT U BLD (test code = 3257) trace Negative - Negati ve Lab Interpretation (test cod e = 60871-1) Abnormal [facility] URINALYSIS W/O SPECIFIC [id number] 15:22:00* Test Item Value Reference Range Interpretation Comme nts POCT PH U (test code = 3254) 5 mg/dl 5-8 POCT U LEUK EST (test code = 3263) neg Negative - Negative POCT U NIT (test code = 3262) positive Negative - Negati ve POCT U PROT (test code = 3259) trace Negative - Negat nain POCT U GLU (test code = 3256) neg Negative - Negati ve POCT U KETONE (test code = 3258) neg Negative - Neg ative POCT U BLD (test code = 3257) trace Negative - Negati ve Lab Interpretation (test cod e = 17607-3) Abnormal [facility] URINALYSIS W/O SPECIFIC [id number] 15:22:00* Test Item Value Reference Range Interpretation Comme nts POCT PH U (test code = 3254) 5 mg/dl 5-8 POCT U LEUK EST (test code = 3263) neg Negative - Negative POCT U NIT (test code = 3262) positive Negative - Negati ve POCT U PROT (test code = 3259) trace Negative - Negat nain POCT U GLU (test code = 3256) neg Negative - Negati ve POCT U KETONE (test code = 3258) neg Negative - Neg ative POCT U BLD (test code = 3257) trace Negative - Negati ve Lab Interpretation (test cod e = 50357-1) Abnormal [facility] [id number] 15:21:00* Test Item Value Reference Range Interpretation Comme nts POCT PREG (test code = 1605) Positive faint/weak On board controls acceptable with C Line (test code = 3574) Yes POCT PREG LOT # (test code = 3575) POCT PREG TEST DATE ( test code = 3576) [facility] [id number] 15:21:00* Test Item Value Reference Range Interpretation Comme nts POCT PREG (test code = 1605) Positive faint/weak On board controls acceptable with C Line (test code = 3574) Yes POCT PREG LOT # (test code = 3575) POCT PREG TEST DATE ( test code = 3576) [facility] [id number] 15:21:00* Test Item Value Reference Range Interpretation Comme nts POCT PREG (test code = 1605) Positive faint/weak On board controls acceptable with C Line (test code = 3574) Yes POCT PREG LOT # (test code = 3575) POCT PREG TEST DATE ( test code = 3576) [facility] [id number] 13:58:00* Test Item Value Reference Range Interpretation Comme nts POCT PREG (test code = 1605) Negative On board controls acceptable with C Line (test code = 3574) Yes POCT PREG LOT # (test code = 3575) POCT PREG TEST DATE ( test code = 3576) Lab Interpretation (test cod e = 37784-0) Normal [facility] [id number] 13:58:00* Test Item Value Reference Range Interpretation Comme nts POCT PREG (test code = 1605) Negative On board controls acceptable with C Line (test code = 3574) Yes POCT PREG LOT # (test code = 3575) POCT PREG TEST DATE ( test code = 3576) Lab Interpretation (test cod e = 30969-1) Normal [facility] [id number] 16:09:00* Test Item Value Reference Range Interpretation Comme nts POCT PREG (test code = 1605) Negative On board controls acceptable with C Line (test code = 3574) Yes POCT PREG LOT # (test code = 3575) POCT PREG TEST DATE (test code = 3576) LORENA (test code = LORENA) accurate developme nt and interpretation of all internal controls [facility] [id number] 19:56:00* Test Item Value Reference Range Interpretation Comme nts POCT PREG (test code = 1605) Negative On board controls acceptable with C Line (test code = 3574) Yes POCT PREG LOT # (test code = 3575) POCT PREG TEST DATE ( test code = 3576) [facility] [id number] [facility]:00* Test Item Value Reference Range Interpretation Comme nts WBC (test code = 1001) 7.2 K/UL RBC (test code = 1002) 4.73 M/UL HEMOGLOBIN (test code = 1003) 14.8 G/DL HEMATOCRIT (test code = 1004) 42.6 % MCV (test code = 1005) 90.1 fL MCH (test code = 1006) 31.3 PG MCHC (test code = 1007) 34.7 G/DL RDW (test code = 1038) 12.1 % NEUTROPHILS (test code = 1008) 60.4 % LYMPHOCYTES (test code = 1010) 26.3 % MONOCYTES (test code = 1011) 9.7 % EOSINOPHILS (test code = 1012) 2.8 % BASOPHILS (test code = 1013) 0.4 % IMMATURE GRANULOCYTES (test code = 1036) 0.4 % NUCLEATED RBCS (test code = 1065) 0.0 /100WBC'S PLATELET COUNT (test code = 1015) 271 K/UL ABSOLUTE NEUTROPHILS (test c ode = 1066) 4.36 K/UL ABSOLUTE LYMPHOCYTES (test c ode = 1067) 1.90 K/UL ABSOLUTE MONOCYTES (test cod e = 1068) 0.70 K/UL ABSOLUTE EOSINOPHILS (test c ode = 1040) 0.20 K/UL ABSOLUTE BASOPHILS (test cod e = 1069) 0.03 K/UL ABS IMMATURE GRANULOCYTES (t est code = 1020) 0.03 K/UL ABS NUCLEATED RBCS (test cod e = 41625) 0.00 K/UL Bert F DexCOMPREHENSIVE METABOLIC [id number] 00:00:00* Test Item Value Reference Range Interpretation Comme nts GLUCOSE (test code = 2217) 86 MG/DL BUN (test code = 2208) 10 MG/DL CREATININE (test code = 2214) 0.61 MG/DL eGFR AMER. (test cod e = 99749) 151 ML/MIN/1.73 eGFR NON- AMER. (test code = 27576) 131 ML/MIN/1.73 CALC BUN/CREAT (test code = 2235) 16 RATIO SODIUM (test code = 2231) 138 MEQ/L POTASSIUM (test code = 2228) 4.4 MEQ/L CHLORIDE (test code = 2215) 103 MEQ/L CARBON DIOXIDE (test code = 2206) 26 MEQ/L CALCIUM (test code = 2209) 9.5 MG/DL PROTEIN, TOTAL (test code = 2229) 7.2 G/DL ALBUMIN (test code = 2201) 4.6 G/DL CALC GLOBULIN (test code = 2240) 2.6 G/DL CALC A/G RATIO (test code = 2234) 1.8 RATIO BILIRUBIN, TOTAL (test code = 2207) 0.6 MG/DL ALKALINE PHOSPHATASE (test code = 2204) 62 U/L AST (test code = 2218) 20 U/L ALT (test code = 2219) 12 U/L Bert KowalskiH. PYLORI (BREATH)2020-10-11 00:00:00* Test Item Value Reference Range Interpretation Comme nts H. PYLORI (BREATH) (test cod e = 33181) NEGATIVE Bert KowalskiCBC W/AUTO [id number] 00:00:00* Test Item Value Reference Range Interpretation Comme nts WBC (test code = 1001) 7.2 K/UL RBC (test code = 1002) 4.73 M/UL HEMOGLOBIN (test code = 1003) 14.8 G/DL HEMATOCRIT (test code = 1004) 42.6 % MCV (test code = 1005) 90.1 fL MCH (test code = 1006) 31.3 PG MCHC (test code = 1007) 34.7 G/DL RDW (test code = 1038) 12.1 % NEUTROPHILS (test code = 1008) 60.4 % LYMPHOCYTES (test code = 1010) 26.3 % MONOCYTES (test code = 1011) 9.7 % EOSINOPHILS (test code = 1012) 2.8 % BASOPHILS (test code = 1013) 0.4 % IMMATURE GRANULOCYTES (test code = 1036) 0.4 % NUCLEATED RBCS (test code = 1065) 0.0 /100WBC'S PLATELET COUNT (test code = 1015) 271 K/UL ABSOLUTE NEUTROPHILS (test c ode = 1066) 4.36 K/UL ABSOLUTE LYMPHOCYTES (test c ode = 1067) 1.90 K/UL ABSOLUTE MONOCYTES (test cod e = 1068) 0.70 K/UL ABSOLUTE EOSINOPHILS (test c ode = 1040) 0.20 K/UL ABSOLUTE BASOPHILS (test cod e = 1069) 0.03 K/UL ABS IMMATURE GRANULOCYTES (t est code = 1020) 0.03 K/UL ABS NUCLEATED RBCS (test cod e = 70236) 0.00 K/UL Bert KowalskiCOMPREHENSIVE METABOLIC [id number] 00:00:00* Test Item Value Reference Range Interpretation Comme nts GLUCOSE (test code = 2217) 86 MG/DL BUN (test code = 2208) 10 MG/DL CREATININE (test code = 2214) 0.61 MG/DL eGFR AMER. (test cod e = ) 151 ML/MIN/1.73 eGFR NON- AMER. (test code = ) 131 ML/MIN/1.73 CALC BUN/CREAT (test code = 2235) 16 RATIO SODIUM (test code = 223) 138 MEQ/L POTASSIUM (test code = 2228) 4.4 MEQ/L CHLORIDE (test code = 2215) 103 MEQ/L CARBON DIOXIDE (test code = 2206) 26 MEQ/L CALCIUM (test code = 2209) 9.5 MG/DL PROTEIN, TOTAL (test code = 222) 7.2 G/DL ALBUMIN (test code = 220) 4.6 G/DL CALC GLOBULIN (test code = 2240) 2.6 G/DL CALC A/G RATIO (test code = 2234) 1.8 RATIO BILIRUBIN, TOTAL (test code = 2206) 0.6 MG/DL ALKALINE PHOSPHATASE (test code = 2204) 62 U/L AST (test code = 2218) 20 U/L ALT (test code = 2219) 12 U/L Bert Elizabeth DexH. PYLORI (BREATH)2020-10-11 00:00:00* Test Item Value Reference Range Interpretation Comme nts H. PYLORI (BREATH) (test cod e = 25550) NEGATIVE Bert Johnson [id number] (COVID-19) by RT-PCR (HIGH RISK)2020-05-27 00:00:00* Test Item Value Reference Range Interpretation Comme nts SARS-CoV-2 INTERPRETATION (t est code = 35471) NEGATIVE SOURCE (test code = 81613) NOT SPECIFIED Bert Johnson [id number] (COVID-19) by RT-PCR (HIGH RISK)2020-05-27 00:00:00* Test Item Value Reference Range Interpretation Comme nts SARS-CoV-2 INTERPRETATION (t est code = 46768) NEGATIVE SOURCE (test code = 16448) NOT SPECIFIED Bert Elizabeth DexCBC W/AUTO [id number] 00:00:00* Test Item Value Reference Range Interpretation Comme nts WBC (test code = 1001) 5.9 K/UL RBC (test code = 1002) 4.39 M/UL HEMOGLOBIN (test code = 1003) 12.3 G/DL HEMATOCRIT (test code = 1004) 37.2 % MCV (test code = 1005) 84.7 fL MCH (test code = 1006) 28.0 PG MCHC (test code = 1007) 33.1 G/DL RDW (test code = 1038) 13.6 % NEUTROPHILS (test code = 1008) 55.8 % LYMPHOCYTES (test code = 1010) 27.9 % MONOCYTES (test code = 1011) 12.3 % EOSINOPHILS (test code = 1012) 3.5 % BASOPHILS (test code = 1013) 0.5 % PLATELET COUNT (test code = 1015) 281 K/UL Bert KowalskiCOMPREHENSIVE METABOLIC [id number] 00:00:00* Test Item Value Reference Range Interpretation Comme nts GLUCOSE (test code = 2217) 60 MG/DL BUN (test code = 2208) 13 MG/DL CREATININE (test code = 2214) 0.67 MG/DL eGFR AMER. (test cod e = 04588) 149 ML/MIN/1.73 eGFR NON- AMER. (test code = 32708) 128 ML/MIN/1.73 CALC BUN/CREAT (test code = 2235) 19 RATIO SODIUM (test code = 2231) 145 MEQ/L POTASSIUM (test code = 2228) 4.1 MEQ/L CHLORIDE (test code = 2215) 108 MEQ/L CARBON DIOXIDE (test code = 2206) 27 MEQ/L CALCIUM (test code = 2209) 9.3 MG/DL PROTEIN, TOTAL (test code = 2229) 7.2 G/DL ALBUMIN (test code = 2201) 4.5 G/DL CALC GLOBULIN (test code = 2240) 2.7 G/DL CALC A/G RATIO (test code = 2234) 1.7 RATIO BILIRUBIN, TOTAL (test code = 2207) 0.2 MG/DL ALKALINE PHOSPHATASE (test code = 2204) 77 U/L AST (test code = 2218) 20 U/L ALT (test code = 2219) 12 U/L Bert KowalskiCBC W/AUTO [id number] 00:00:00* Test Item Value Reference Range Interpretation Comme nts WBC (test code = 1001) 5.9 K/UL RBC (test code = 1002) 4.39 M/UL HEMOGLOBIN (test code = 1003) 12.3 G/DL HEMATOCRIT (test code = 1004) 37.2 % MCV (test code = 1005) 84.7 fL MCH (test code = 1006) 28.0 PG MCHC (test code = 1007) 33.1 G/DL RDW (test code = 1038) 13.6 % NEUTROPHILS (test code = 1008) 55.8 % LYMPHOCYTES (test code = 1010) 27.9 % MONOCYTES (test code = 1011) 12.3 % EOSINOPHILS (test code = 1012) 3.5 % BASOPHILS (test code = 1013) 0.5 % PLATELET COUNT (test code = 1015) 281 K/UL Bert KowalskiCOMPREHENSIVE METABOLIC [id number] 00:00:00* Test Item Value Reference Range Interpretation Comme nts GLUCOSE (test code = 2217) 60 MG/DL BUN (test code = 2208) 13 MG/DL CREATININE (test code = 2214) 0.67 MG/DL eGFR AMER. (test cod e = 83593) 149 ML/MIN/1.73 eGFR NON- AMER. (test code = 53327) 128 ML/MIN/1.73 CALC BUN/CREAT (test code = 2235) 19 RATIO SODIUM (test code = 2231) 145 MEQ/L POTASSIUM (test code = 2228) 4.1 MEQ/L CHLORIDE (test code = 2215) 108 MEQ/L CARBON DIOXIDE (test code = 2206) 27 MEQ/L CALCIUM (test code = 2209) 9.3 MG/DL PROTEIN, TOTAL (test code = 2229) 7.2 G/DL ALBUMIN (test code = 2201) 4.5 G/DL CALC GLOBULIN (test code = 2240) 2.7 G/DL CALC A/G RATIO (test code = 2234) 1.7 RATIO BILIRUBIN, TOTAL (test code = 2207) 0.2 MG/DL ALKALINE PHOSPHATASE (test code = 2204) 77 U/L AST (test code = 2218) 20 U/L ALT (test code = 2219) 12 U/L Bert KowalskiCOMPREHENSIVE METABOLIC [id number] 00:00:00* Test Item Value Reference Range Interpretation Comme nts GLUCOSE (test code = 2217) 79 MG/DL BUN (test code = 2208) 9 MG/DL CREATININE (test code = 2214) 0.62 MG/DL eGFR AMER. (test cod e = 63621) 153 ML/MIN/1.73 eGFR NON- AMER. (test code = 48172) 132 ML/MIN/1.73 CALC BUN/CREAT (test code = 2235) 15 RATIO SODIUM (test code = 2231) 142 MEQ/L POTASSIUM (test code = 2228) 4.3 MEQ/L CHLORIDE (test code = 2215) 104 MEQ/L CARBON DIOXIDE (test code = 2206) 28 MEQ/L CALCIUM (test code = 2209) 9.2 MG/DL PROTEIN, TOTAL (test code = 2229) 7.1 G/DL ALBUMIN (test code = 2201) 4.3 G/DL CALC GLOBULIN (test code = 2240) 2.8 G/DL CALC A/G RATIO (test code = 2234) 1.5 RATIO BILIRUBIN, TOTAL (test code = 2207) 0.3 MG/DL ALKALINE PHOSPHATASE (test code = 2204) 69 U/L AST (test code = 2218) 17 U/L ALT (test code = 2219) 11 U/L [facility] [id number] 00:00:00* Test Item Value Reference Range Interpretation Comme nts WBC (test code = 1001) 7.0 K/UL RBC (test code = 1002) 4.13 M/UL HEMOGLOBIN (test code = 1003) 11.9 G/DL HEMATOCRIT (test code = 1004) 34.7 % MCV (test code = 1005) 84.0 fL MCH (test code = 1006) 28.8 PG MCHC (test code = 1007) 34.3 G/DL RDW (test code = 1038) 12.4 % NEUTROPHILS (test code = 1008) 59.1 % LYMPHOCYTES (test code = 1010) 27.7 % MONOCYTES (test code = 1011) 9.6 % EOSINOPHILS (test code = 1012) 3.3 % BASOPHILS (test code = 1013) 0.3 % PLATELET COUNT (test code = 1015) 231 K/UL Bert [id number] 00:00:00* Test Item Value Reference Range Interpretation Comme nts TSH, THIRD GENERATION (test code = 2821) 0.773 UIU/ML Bert KowalskiCOMPREHENSIVE METABOLIC [id number] 00:00:00* Test Item Value Reference Range Interpretation Comme nts GLUCOSE (test code = 2217) 79 MG/DL BUN (test code = 2208) 9 MG/DL CREATININE (test code = 2214) 0.62 MG/DL eGFR AMER. (test cod e = 64115) 153 ML/MIN/1.73 eGFR NON- AMER. (test code = 52947) 132 ML/MIN/1.73 CALC BUN/CREAT (test code = 2235) 15 RATIO SODIUM (test code = 2231) 142 MEQ/L POTASSIUM (test code = 2228) 4.3 MEQ/L CHLORIDE (test code = 2215) 104 MEQ/L CARBON DIOXIDE (test code = 2206) 28 MEQ/L CALCIUM (test code = 2209) 9.2 MG/DL PROTEIN, TOTAL (test code = 2229) 7.1 G/DL ALBUMIN (test code = 2201) 4.3 G/DL CALC GLOBULIN (test code = 2240) 2.8 G/DL CALC A/G RATIO (test code = 2234) 1.5 RATIO BILIRUBIN, TOTAL (test code = 2207) 0.3 MG/DL ALKALINE PHOSPHATASE (test code = 2204) 69 U/L AST (test code = 2218) 17 U/L ALT (test code = 2219) 11 U/L Bert KowalskiCBC W/AUTO [id number] 00:00:00* Test Item Value Reference Range Interpretation Comme nts WBC (test code = 1001) 7.0 K/UL RBC (test code = 1002) 4.13 M/UL HEMOGLOBIN (test code = 1003) 11.9 G/DL HEMATOCRIT (test code = 1004) 34.7 % MCV (test code = 1005) 84.0 fL MCH (test code = 1006) 28.8 PG MCHC (test code = 1007) 34.3 G/DL RDW (test code = 1038) 12.4 % NEUTROPHILS (test code = 1008) 59.1 % LYMPHOCYTES (test code = 1010) 27.7 % MONOCYTES (test code = 1011) 9.6 % EOSINOPHILS (test code = 1012) 3.3 % BASOPHILS (test code = 1013) 0.3 % PLATELET COUNT (test code = 1015) 231 K/UL Bert [id number] 00:00:00* Test Item Value Reference Range Interpretation Comme nts TSH, THIRD GENERATION (test code = 2821) 0.773 UIU/ML Bert GibbsA, AMPLIFIED, [id number] 00:00:00* Test Item Value Reference Range Interpretation Comme nts CHLAMYDIA, TMA (test code = 99226) NEGATIVE Bert KowalskiGC, AMPLIFIED, [id number] 00:00:00* Test Item Value Reference Range Interpretation Comme nts GONORRHEA, TMA (test code = 34229) NEGATIVE Bert DasAMYDIA, AMPLIFIED, [id number] 00:00:00* Test Item Value Reference Range Interpretation Comme nts CHLAMYDIA, TMA (test code = 63154) NEGATIVE Bert KowalskiGC, AMPLIFIED, [id number] 00:00:00* Test Item Value Reference Range Interpretation Comme nts GONORRHEA, TMA (test code = 53008) NEGATIVE Bert KowalskiCULTURE, [id number] 00:00:00* Test Item Value Reference Range Interpretation Comme nts CULTURE, URINE (test code = 13042) SPECIMEN NUMBER: [id number] Bert MckeonLTLEE, [id number] 00:00:00* Test Item Value Reference Range Interpretation Comme nts CULTURE, URINE (test code = 23689) SPECIMEN NUMBER: [id number] [facility] [id number] 00:00:00* Test Item Value Reference Range Interpretation Comme nts WBC (test code = 1001) 6.6 K/UL RBC (test code = 1002) 4.45 M/UL HEMOGLOBIN (test code = 1003) 12.8 G/DL HEMATOCRIT (test code = 1004) 38.6 % MCV (test code = 1005) 86.7 fL MCH (test code = 1006) 28.8 PG MCHC (test code = 1007) 33.2 G/DL RDW (test code = 1038) 14.6 % NEUTROPHILS (test code = 1008) 55.3 % LYMPHOCYTES (test code = 1010) 27.1 % MONOCYTES (test code = 1011) 12.1 % EOSINOPHILS (test code = 1012) 5.0 % BASOPHILS (test code = 1013) 0.5 % PLATELET COUNT (test code = 1015) 275 K/UL Bert [id number] 00:00:00* Test Item Value Reference Range Interpretation Comme nts TSH, THIRD GENERATION (test code = 2821) 0.578 UIU/ML Bert Johnson DxeCBC W/AUTO [id number] 00:00:00* Test Item Value Reference Range Interpretation Comme nts WBC (test code = 1001) 6.6 K/UL RBC (test code = 1002) 4.45 M/UL HEMOGLOBIN (test code = 1003) 12.8 G/DL HEMATOCRIT (test code = 1004) 38.6 % MCV (test code = 1005) 86.7 fL MCH (test code = 1006) 28.8 PG MCHC (test code = 1007) 33.2 G/DL RDW (test code = 1038) 14.6 % NEUTROPHILS (test code = 1008) 55.3 % LYMPHOCYTES (test code = 1010) 27.1 % MONOCYTES (test code = 1011) 12.1 % EOSINOPHILS (test code = 1012) 5.0 % BASOPHILS (test code = 1013) 0.5 % PLATELET COUNT (test code = 1015) 275 K/UL Bert [id number] 00:00:00* Test Item Value Reference Range Interpretation Comme nts TSH, THIRD GENERATION (test code = 2821) 0.578 UIU/ML Bert Kowalski Notes Date/Time Note Provider Source Bert Pedro [facility]2024-06-29 00:00:00 Bert Pedro [facility]
[2024-04-04] MEDS ORDERED: KETOROLAC 30 MG/ML INJ ONE (21:35)
[2024-04-04] MEDS ORDERED: NA CHLORIDE 0.9% 1,000 ML ONE (21:35)
[2024-04-04] MEDS ORDERED: ONDANSETRON 4 MG/2 ML VIAL ONE (21:35)
[2024-04-04] MEDS ORDERED: MORPHINE 4 MG/ML SYR ONE (21:35)
[2024-04-04 21:48] LABS: Absolute Eosinophils 0.2 K/uL (0-0.5); Absolute Lymphocytes (CBC) 2.8 K/uL (0.7-4.9); Absolute Neutrophil 4.7 K/uL (1.8-8.0); Basophils % 0.5 % (0-1.3); Eosinophils % 2.8 % (0-4.4); Hematocrit 37.1 % (36.0-45.0); Hemoglobin 12.4 g/dL (12.0-15.0); Lymphocytes % 32.3 % (15.3-44.8); MCHC 33.5 g/dL (32.0-36.0); MCV 86.5 fL (80-100); MPV 7.3 fL (7.6-11.3); Monocytes % 11.4 % (3.3-12.3); Nucleated Red Blood Cells % 0.1 % (0-0); Platelets 287 thou/uL (152-406); RBC Red Blood Cell Count 4.29 M/uL (3.86-4.86)
[2024-04-04 22:03] LABS: Albumin 3.6 g/dL (3.4-5.0); Anion Gap 9.9 mEq/L (5.0-15.0); Bilirubin Total 0.3 mg/dL (0.2-1.0); Globulin 3.6 g/dL (2.3-3.5); Potassium 3.9 mEq/L (3.5-5.1); Protein, Total 7.2 g/dL (6.4-8.2)
[2024-04-04 23:17] LABS: Specific Gravity > 1.030 (1.005-1.030); Urine Bilirubin 1+ (Negative); Urine Blood Negative (Negative); Urine Clarity Clear (Clear); Urine Color Light-Yellow (Yellow); Urine Glucose NEGATIVE (Negative); Urine Ketones NEGATIVE (Negative); Urine Microscopic Reflex YN NO UMIC; Urine Nitrite NEGATIVE (Negative); Urine Protein NEGATIVE (Negative); Urine Urobilinogen Normal (Normal); Urine pH 6.5 (5.0-7.0)
[2024-04-05] MEDS ORDERED: ONDANSETRON 4 MG/2 ML VIAL IV PRN (01:16)
[2024-04-05] MEDS: PANTOPRAZOLE 40 MG INJ IVP SCH (01:20)
[2024-04-05] MEDS ORDERED: SODIUM CHLORIDE 0.9% 10ML INJ IV PRN (01:20)
--- NOTE | 2024-04-05 01:27 | ER ---
Nurse's Notes [facility] Name: Radha Zaldivar Age: 24 yrs Sex: Female : 2000 Arrival Date: 04/04/2024 Time: 19:52 Bed 19 Private MD: Diagnosis: Partial small bowel obstruction, Acute paralytic ileus Presentation: 04/04 20:15 Chief complaint: Patient states: Low back pain onset Tuesday. Pt denies any trauma or cm10 injury. Pt reports going to PCP today for this back pain and was prescribed Etodolac and Methocarbamol. Pt states that she also got an injection and is continuing to have pain. Coronavirus screen: Client denies travel out of the [place] in the last 14 days. Ebola Screen: Patient denies travel to an Ebola-affected area in the 21 days before illness onset. No symptoms or risks identified at this time. Initial Sepsis Screen: Does the patient meet any 2 criteria? No. Patient's initial sepsis screen is negative. Does the patient have a suspected source of infection? No. Patient's initial sepsis screen is negative. Risk Assessment: Do you want to hurt yourself or someone else? Patient reports no desire to harm self or others. Onset of symptoms was April 04, 2024. 20:15 Method Of Arrival: Ambulatory cm10 20:15 Acuity: LETICIA 4 cm10 Triage Assessment: 20:18 General: Appears in no apparent distress. uncomfortable, Behavior is calm, cooperative. cm10 Neuro: No deficits noted. Level of Consciousness is awake, alert, obeys commands, Oriented to person, place, time, situation, Appropriate for age. Respiratory: No deficits noted. Airway is patent Respiratory effort is even, unlabored, Respiratory pattern is regular, symmetrical. Historical: - Allergies: 20:17 No Known Allergies; cm10 - PMHx: 20:17 Anxiety; Depression; Depression; GERD; PTSD; Seizures; cm10 - Immunization history:: Adult Immunizations up to date. - Infectious Disease History:: Denies. - Social history:: Smoking status: Reported history of juuling and/or vaping. - Family history:: not pertinent. Screenin/24 03:22 [facility] ED Fall Risk Assessment (Adult) History of falling in the last 3 months, rg5 including since admission No falls in past 3 months (0 pts) Confusion or Disorientation No (0 pts) Intoxicated or Sedated No (0 pts) Impaired Gait No (0 pts) Mobility Assist Device Used No (0 pt) Altered Elimination No (0 pt) Score/Fall Risk Level 0 - 2 = Low Risk Oriented to surroundings, Maintained a safe environment, Hourly rounding (assess needs \T\ fall precautionary measures) done. Abuse screen: Denies threats or abuse. Nutritional screening: No deficits noted. Tuberculosis screening: No symptoms or risk factors identified. Assessment: 04/04 21:00 General: Appears in no apparent distress. uncomfortable, Behavior is calm, cooperative, jb4 appropriate for age. Pain: Complains of pain in posterior aspect of left lateral abdomen Pain does not radiate. Pain currently is 10 out of 10 on a pain scale. Neuro: Level of Consciousness is awake, alert, obeys commands, Oriented to person, place, time, situation. Cardiovascular: Patient's skin is warm and dry. Respiratory: Airway is patent Respiratory effort is even, unlabored, Respiratory pattern is regular, symmetrical. GI: No signs and/or symptoms were reported involving the gastrointestinal system. : No signs and/or symptoms were reported regarding the genitourinary system. Derm: Skin is intact, Skin is pink, warm \T\ dry. 23:39 Reassessment: Patient appears in no apparent distress at this time. Patient and/or jb4 family updated on plan of care and expected duration. Pain level reassessed. Patient is alert, oriented x 3, equal unlabored respirations, skin warm/dry/pink. Vital Signs: 20:15 BP 125 / 75; Pulse 83; Resp 16; Temp 97.4; Pulse Ox 96% on R/A; Weight 77.11 kg; Height cm10 4 ft. 11 in. ; Pain 10/10; 23:34 BP 113 / 64; Pulse 70; Resp 16; Pulse Ox 99% on R/A; jb4 04/05 00:30 BP 111 / 58; Pulse 74; Resp 18; Pulse Ox 99% on R/A; oe 01:30 BP 106 / 54; Pulse 86; Resp 18; Pulse Ox 98% on R/A; oe 02:45 BP 120 / 60; Pulse 85; Resp 17; Pulse Ox 99% on R/A; Pain 6/10; rg5 04/04 20:15 Body Mass Index 34.34 (77.11 kg, 149.86 cm) cm10 04/04 20:15 Pain Scale: Adult cm10 02:45 Pain Scale: Adult rg5 [place] Coma Score: 20:06 Eye Response: spontaneous(4). Motor Response: obeys commands(6). Verbal Response: sp4 oriented(5). Total: 15. ED Course: 04/04 19:54 Patient arrived in ED. im 20:10 Doug Harrington MD is Attending Physician. sp4 20:17 Triage completed. cm10 20:18 Arm band placed on Patient placed in waiting room. cm10 21:48 Inserted saline lock: 20 gauge in right antecubital area, using aseptic technique. oe Blood collected. Flushed with 10 mL NS. 21:49 CBC with Diff Sent. oe 21:49 CMP Sent. oe 21:49 Lipase Sent. oe 22:58 Luis Griffiths, RN is Primary Nurse. jb4 23:56 CT Abd/Pelvis - IV Contrast Only In Process Unspecified. EDMS 04/05 01:25 Prince Nagel MD is Hospitalizing Provider. sp4 03:15 No provider procedures requiring assistance completed. Patient admitted, IV remains in rg5 place. intact, No redness/swelling at site. 03:22 Patient has correct armband on for positive identification. Provided Education on: rg5 needs for admit. 04:55 Abdomen 1 View (KUB) In Process Unspecified. EDMS Administered Medications: 04/04 21:43 Drug: Ondansetron IVP 4 mg IVP once; over 2 minutes Route: IVP; Site: right antecubital;jb4 04/05 03:12 Follow up: Response: No adverse reaction rg5 04/04 21:43 Drug: NS 0.9% IV 1000 ml IV at 1 bolus Per protocol; to be given as a bolus over 60 jb4 minutes Route: IV; Rate: 1 bolus; Site: right antecubital; 04/05 01:35 Follow up: IV Status: Completed infusion; IV Intake: 1000ml rg5 04/04 21:44 Drug: TORadol - Ketorolac IVP 30 mg IVP once Route: IVP; Site: right antecubital; jb4 04/05 03:12 Follow up: Response: No adverse reaction; Pain is decreased rg5 04/04 21:44 Drug: morphine IVP or IV 4 mg IVP once over 4 mins Route: IVP; Infused Over: 4 mins; jb4 Site: right antecubital; 04/05 03:12 Follow up: Response: No adverse reaction; Pain is decreased rg5 01:35 Drug: metoCLOPramide IVP 10 mg IVP once; over 1 to 2 minutes Route: IVP; Site: right rg5 antecubital; 03:12 Follow up: Response: No adverse reaction; Pain is decreased rg5 01:35 Drug: morphine IVP or IV 4 mg IVP once over 4 mins Route: IVP; Infused Over: 4 mins; rg5 Site: right antecubital; 03:11 Follow up: Response: No adverse reaction; Pain is decreased rg5 Medication: 03:48 VIS not applicable for this client. rg5 Intake: 01:35 IV: 1000ml; Total: 1000ml. rg5 Outcome: 01:26 Decision to Hospitalize by Provider. sp4 03:47 Admitted to Med/surg accompanied by tech, via wheelchair, rg5 03:47 Condition: stable 03:47 Discharge instructions given to patient, Instructed on the need for admit, 03:48 Patient left the ED. rg5 Signatures: Dispatcher [employer] EDMS Luis Griffiths, RN RN jb4 Adilson Rizo Sergey, MD MD sp4 Danya Scott Clarissa, RN RN cm10 Marc Razo RN RN rg5
--- NOTE | 2024-04-05 01:27 | EDPHYS ---
Physician Documentation [facility] Name: Radha Zaldivar Age: 24 yrs Sex: Female : 2000 Arrival Date: 04/04/2024 Time: 19:52 Bed 19 Private MD: ED Physician Doug Harrington HPI: 04/04 20:10 This 24 yrs old Female presents to ER via Unassigned with complaints of Low sp4 Back Pain, Hip Pain. 04/05 20:06 24-year-old female presents with complaint of back pain roughly bilateral lower back sp4 pain associated with nausea starting spontaneously prior to arrival.. Historical: - Allergies: 04/04 20:17 No Known Allergies; cm10 - PMHx: 20:17 Anxiety; Depression; Depression; GERD; PTSD; Seizures; cm10 - Immunization history:: Adult Immunizations up to date. - Infectious Disease History:: Denies. - Social history:: Smoking status: Reported history of juuling and/or vaping. - Family history:: not pertinent. ROS: 04/05 20:06 Constitutional: Negative for fever, chills, and weight loss, positive for Bilateral sp4 lower back pain and nausea All other systems are negative, Exam: 20:06 Constitutional: This is a well developed, well nourished patient who is awake, alert, sp4 and in no acute distress. Head/Face: Normocephalic, atraumatic. Eyes: Pupils equal round and reactive to light, extra-ocular motions intact. Lids and lashes normal. Conjunctiva and sclera are not injected. Cornea within normal limits. Periorbital areas with no swelling, redness, or edema. ENT: Nares patent. No nasal discharge, no septal abnormalities noted. Tympanic membranes are normal and external auditory canals are clear. Oropharynx with no redness, swelling, or masses, exudates, or evidence of obstruction, uvula midline. Mucous membranes moist. Neck: Trachea midline, no thyromegaly or masses palpated, and no cervical lymphadenopathy. Supple, full range of motion without nuchal rigidity, or vertebral point tenderness. Chest/axilla: Normal chest wall appearance and motion. Nontender with no deformity. No lesions are appreciated. Cardiovascular: Regular rate and rhythm with a normal S1 and S2. No gallops, murmurs, or rubs. Normal PMI, no JVD. No pulse deficits. Respiratory: Lungs have equal breath sounds bilaterally, clear to auscultation and percussion. No rales, rhonchi or wheezes noted. No increased work of breathing, no retractions or nasal flaring. Abdomen/GI: Soft, with normal bowel sounds. No distension or tympany. No guarding or rebound. No evidence of tenderness throughout. Back: No spinal tenderness. No costovertebral tenderness. Skin: Warm, dry with normal turgor. Normal color with no rashes, no lesions, and no evidence of cellulitis. MS/ Extremity: Pulses equal, no cyanosis. Neurovascular intact. Full, normal range of motion. Neuro: Awake and alert, GCS 15, oriented to person, place, time, and situation. Cranial nerves II-XII grossly intact. Motor strength 5/5 in all extremities. Sensory grossly intact. Psych: Awake, alert, with orientation to person, place and time. Behavior, mood, and affect are within normal limits Vital Signs: 04/04 20:15 BP 125 / 75; Pulse 83; Resp 16; Temp 97.4; Pulse Ox 96% on R/A; Weight 77.11 kg; Height cm10 4 ft. 11 in. ; Pain 10; 23:34 BP 113 / 64; Pulse 70; Resp 16; Pulse Ox 99% on R/A; jb4 04/05 00:30 BP 111 / 58; Pulse 74; Resp 18; Pulse Ox 99% on R/A; oe 01:30 BP 106 / 54; Pulse 86; Resp 18; Pulse Ox 98% on R/A; oe 02:45 BP 120 / 60; Pulse 85; Resp 17; Pulse Ox 99% on R/A; Pain 6/10; rg5 04/04 20:15 Body Mass Index 34.34 (77.11 kg, 149.86 cm) cm10 04/04 20:15 Pain Scale: Adult cm10 02:45 Pain Scale: Adult rg5 [place] Coma Score: 20:06 Eye Response: spontaneous(4). Motor Response: obeys commands(6). Verbal Response: sp4 oriented(5). Total: 15. MDM: 04/04 20:11 Medical Screening Exam initiated sp4 04/05 00:26 ED course: CLINICAL HISTORY: CHEST PAIN. COMPARISON: None. TECHNIQUE: Single viewAP sp4 chest radiograph(s). FINDINGS: The lungs are clear. No pulmonary infiltrate or edema identified. No pleural effusion. No pneumothorax. Nonenlarged cardiomediastinal silhouette. No significant osseous abnormality. IMPRESSION: No acute cardiopulmonary abnormality identified by radiograph.. 00:58 ED course: EXAM DESCRIPTION: Abdomen Pelvis W Contrast CLINICAL HISTORY: 24 years sp4 Female, back pain TECHNIQUE: Helical CT axial images are obtained from the lung bases to the pubic symphysis with IV contrast. No oral contrast was administered. Multiplanar reconstruction. This exam was performed according to our departmental dose-optimization program, which includes automated exposure control, adjustment of the mA and/or kV according to patient size and/or use of iterative reconstruction technique. COMPARISON: None. FINDINGS: LUNG BASES: No basilar consolidation or effusions. LIVER: Normal in size. Normal attenuation. No focal masses. HEPATOBILIARY: Normal-appearing gallbladder. No intra- or extrahepatic ductal dilatation. SPLEEN: Normal size. PANCREAS: Normal size and contour. No focal mass. ADRENAL GLANDS: Normal size. No adrenal masses. KIDNEYS: Bilateral kidneys are normal in size without obstructing calculi or hydronephrosis. No nephrolithiasis. No significant cysts are present. No focal solid mass. BOWEL AND MESENTERY: Fluid-filled mildly dilated duodenum and proximal jejunum with normalization of small bowel caliber left mid abdomen (series 201 image 30 through 32). Remainder of the small bowel loops are normal in caliber. Diffuse colonic fecal retention without bowel dilatation. No large bowel dilatation. No colonic diverticulosis. Normal appendix. No abnormal mesenteric lymphadenopathy. No free fluid or pneumoperitoneum. RETROPERITONEUM: Normal caliber abdominal aorta without aneurysm. No abnormal retroperitoneal lymphadenopathy. PELVIS: Urinary bladder is unremarkable. Uterus and adnexal regions are unremarkable. ABDOMINAL WALL: The abdominal wall is intact. BONES: No suspicious osseous lytic or blastic lesions seen. IMPRESSION: 1. Fluid-filled mildly dilated duodenum and proximal jejunum with normalization of small bowel caliber left mid abdomen. Findings may represent a partial small bowel obstruction versus ileus. 2. Diffuse colonic fecal retention without bowel dilatation. Correlate for constipation. 3. Normal appendix. . 01:26 Differential diagnosis: arthritis, strain, fracture, sciatica, contusion, Herniated sp4 disc UTI. Data reviewed: vital signs, nurses notes, old medical records, lab test result(s), radiologic studies, CT scan. 04/04 20:30 Order name: CBC with Diff 4 04/04 20:30 Order name: CMP sp4 04/04 20:30 Order name: Lipase sp4 04/04 20:30 Order name: Test, Urine; Complete Time: 23:50 sp4 04/04 20:30 Order name: Urinalysis w/ reflexes; Complete Time: 23:50 4 04/04 21:49 Order name: CBC with Automated Diff; Complete Time: 22:56 EDMS 04/04 22:03 Order name: Comprehensive Metabolic Panel; Complete Time: 22:56 EDMS 04/04 22:03 Order name: Lipase; Complete Time: 22:56 EDMS 04/05 01:20 Order name: Creatine Phosphokinase; Complete Time: 20:06 EDMS 04/05 01:20 Order name: Magnesium; Complete Time: 20:06 EDMS 04/05 01:20 Order name: Phosphorus; Complete Time: 20:06 EDMS 04/05 01:20 Order name: Urinalysis w/ reflexes EDMS 04/05 01:20 Order name: Basic Metabolic Panel [facility]RI 04/05 01:20 Order name: Basic Metabolic Panel [facility] 04/05 01:20 Order name: CBC with Automated Diff [facility]RI 04/05 01:20 Order name: CBC with Automated Diff [facility] 04/04 20:30 Order name: CT Abd/Pelvis - IV Contrast Only; Complete Time: 20:06 4 04/05 01:49 Order name: Abdomen 1 View (KUB) EDRI 04/05 01:49 Order name: Abdomen 1 View (KUB); Complete Time: 20:06 EDRI 04/05 01:49 Order name: Abdomen 1 View (KUB) [facility] 04/05 01:49 Order name: Abdomen 1 View (KUB) [facility]RI 04/05 01:49 Order name: Abdomen 1 View (KUB) [facility] 04/05 01:49 Order name: Abdomen 1 View (KUB) [facility] 04/04 20:30 Order name: IV Saline Lock; Complete Time: 21:44 sp4 04/04 20:30 Order name: Labs collected and sent; Complete Time: 21:44 sp4 Administered Medications: 04/04 21:43 Drug: Ondansetron IVP 4 mg IVP once; over 2 minutes Route: IVP; Site: right antecubital;jb4 04/05 03:12 Follow up: Response: No adverse reaction rg5 04/04 21:43 Drug: NS 0.9% IV 1000 ml IV at 1 bolus Per protocol; to be given as a bolus over 60 jb4 minutes Route: IV; Rate: 1 bolus; Site: right antecubital; 04/05 01:35 Follow up: IV Status: Completed infusion; IV Intake: 1000ml rg5 04/04 21:44 Drug: TORadol - Ketorolac IVP 30 mg IVP once Route: IVP; Site: right antecubital; jb4 04/05 03:12 Follow up: Response: No adverse reaction; Pain is decreased rg5 04/04 21:44 Drug: morphine IVP or IV 4 mg IVP once over 4 mins Route: IVP; Infused Over: 4 mins; jb4 Site: right antecubital; 04/05 03:12 Follow up: Response: No adverse reaction; Pain is decreased rg5 01:35 Drug: metoCLOPramide IVP 10 mg IVP once; over 1 to 2 minutes Route: IVP; Site: right rg5 antecubital; 03:12 Follow up: Response: No adverse reaction; Pain is decreased rg5 01:35 Drug: morphine IVP or IV 4 mg IVP once over 4 mins Route: IVP; Infused Over: 4 mins; rg5 Site: right antecubital; 03:11 Follow up: Response: No adverse reaction; Pain is decreased rg5 Disposition: 20:09 Chart complete. sp4 Disposition Summary: 04/05/24 01:26 Hospitalization Ordered Notes: Hospitalization Status: Inpatient Admission sp4 Provider: Prince Robe sp4 Location: Telemetry/MedSur (observation) sp4 Condition: Stable sp4 Problem: new sp4 Symptoms: have improved sp4 Bed/Room Type: Standard sp4 Room Assignment: 207(04/05/24 03:06) vc1 Diagnosis - Partial small bowel obstruction, Acute paralytic ileus sp4 Forms: - Medication Reconciliation Form sp4 - SBAR form sp4 - Leadership Thank You Letter sp4 Signatures: Dispatcher [employer] Luis Cordoba RN RN jb4 Celina Becker RN RN vc1 Doug Harrington MD MD sp4 Cely Zaldivar RN RN cm10 Marc Razo RN RN rg5 Corrections: (The following items were deleted from the chart) 03:06 01:26 sp4 vc1
[2024-04-05] MEDS ORDERED: MORPHINE 4 MG/ML SYR ONE (01:29)
[2024-04-05] MEDS ORDERED: METOCLOPRAMIDE 10 MG/2mL INJ ONE (01:29)
--- NOTE | 2024-04-05 01:46 | P.HP ---
Certification for Inpatient Patient admitted to: Inpatient With expected LOS: >2 Midnights Practitioner: I am a practitioner with admitting privileges, knowledge of patient current condition, hospital course, and medical plan of care. Services: Services provided to patient in accordance with Admission requirements found in Title 42 Section 412.3 of the Code of Federal Regulations Patient History Date of Service: 04/05/24 Reason for admission: back pain History of Present Illness: Patient is a 24-year old female with obesity but otherwise no other chronic medical issues. She is here for acutely worsening lower back pain ongoing for the past 3 days. She has no fever. She also denies nausea or vomiting. CT A/P is suggestive of SBO. Her last BM was 2 days ago. During my evaluation, she was awake but in mild distress. She is hemodynamically stable. Allergies No Known Allergies Allergy (Unverified 02/03/12 23:56) Physical Examination - Physical Exam General: Acute distress, Obese HEENT: Atraumatic, Normocephalic Respiratory: Clear to auscultation bilaterally, Normal air movement Cardiovascular: No edema, Normal pulses, Regular rate/rhythm, Normal S1 S2 Gastrointestinal: Distended, Tenderness Neurological: Normal speech - Studies Laboratory Data (last 24 hrs) 04/04/24 04/04/24 21:39 21:39 WBC 8.80 Hgb 12.4 Hct 37.1 Plt Count 287 Sodium 138 Potassium 3.9 BUN 18 Creatinine 0.84 Glucose 96 Total Bilirubin 0.3 AST 12 L ALT 18 Alkaline Phosphatase 77 Lipase 28 Assessment and Plan - Problems (Diagnosis) (1) SBO (small bowel obstruction) Current Visit: Yes Status: Acute (2) Obesity Current Visit: Yes Status: Acute - Plan Assessment Patient is a 24 year old female with obesity currently beign admitted for SBO SBO Obesity PLAN: Will admit inpatient NPO for bowel rest Anti-emetics and acid suppression Replace electrolyte as needed Daily physical exam and AXR General surgery consulted - Advance Directives Does patient have a Living Will: No Does patient have a Durable POA for Healthcare: No
[2024-04-05 06:38] VITALS: BMI 34.3
--- NOTE | 2024-04-05 07:07 | RAD REPORT ---
EXAM DESCRIPTION: Abdomen Pelvis W Contrast CLINICAL HISTORY: 24 years Female, back pain TECHNIQUE: Helical CT axial images are obtained from the lung bases to the pubic symphysis with IV co ntrast. No oral contrast was administered. Multiplanar reconstruction. This exam was performed according to our departmental dose-optimization program, which includes automated exposure control, a djustment of the mA and/or kV according to patient size and/or use of iterative reconstruction technique. COMPARISON: None. FINDINGS: LUNG BASES: No basilar consolidation or effusions. LIVER: Normal in size. Normal attenuation. No focal masses. HEPATOBILIARY: Normal-appearing gallbladder. No intra- or extrahepatic ductal dilatation. SPLEEN: Normal size. PANCREAS: Normal size and contour. No focal mass. ADRENAL GLANDS: Normal size. No adrenal masses. KIDNEYS: Bilateral kidneys are normal in size without obstructing calculi or hydronephrosis. No nep hrolithiasis. No significant cysts are present. No focal solid mass. BOWEL AND MESENTERY: Fluid-filled mildly dilated duodenum and proximal jejunum with normalization of small bowel caliber left mid abdomen (series 201 image 30 through 32). Remainder of the small bowel loops are normal in caliber. Diffuse colonic fecal retention without bowel dilatation. No large bowel dilatation. No colonic diverticulosis. Normal appendix. No abnormal mesenteric lymphadenopathy. No free fluid or pneumoperitoneum. RETROPERITONEUM: Normal caliber abdominal aorta without aneurysm. No abnormal retroperitoneal lymphad enopathy. PELVIS: Urinary bladder is unremarkable. Uterus and adnexal regions are unremarkable. ABDOMINAL WALL: The abdominal wall is intact. BONES: No suspicious osseous lytic or blastic lesions seen. IMPRESSION: 1. Fluid-filled mildly dilated duodenum and proximal jejunum with normalization of small bowel duncan ant left mid abdomen. Findings may represent a partial small bowel obstruction versus ileus. 2. Diffuse colonic fecal retention without bowel dilatation. Correlate for constipation. 3. Normal appendix. Electronically signed by: Papi Ramsey MD 04/05/2024 12:27 AM CDT N Due to temporary technical issues with the PACS/Affle reporting system, reports are being jasmin d by the in-house radiologist without review as a courtesy to ensure prompt reporting the interpreting radiologist is fully responsible for the content of the report. Transcribed Date/Time: 04/05/2024 7:07 AM
[2024-04-05 07:51] LABS: Phosphorus 3.4 mg/dL (2.5-4.9)
--- NOTE | 2024-04-05 07:55 | RAD REPORT ---
EXAM: XR of the abdomen HISTORY: Abdominal pain SBO COMPARISON: None FINDINGS: XR of the abdomen shows a nonspecific, nonobstructive bowel gas pattern. There is a large a mount of stool retained in the colon. No suspicious calcifications are seen. The bones are unremarkable. IMPRESSION: There is advanced constipation. No bowel obstruction pattern seen.
[2024-04-05] MEDS: NA CHLORIDE 0.9% 1,000 ML IV SCH (10:08)
[2024-04-05] MEDS: ENOXAPARIN 40 MG/0.4 ML SQ SCH (10:08)
--- NOTE | 2024-04-05 12:59 | P.PN ---
Date of Service: 04/05/24 Pt seen and examined. Patient is a 24 year old female with obesity who presents with SBO A/P: SBO: Will keep pt NPO. Will f/u [facility]. Consulted Gen surgeon. Pt is passing gas. Last BM was 2 days ago. Obesity: Pt was advised to lose weight. DVT ppx: SCD Code: full
[2024-04-05] MEDS: LACTULOSE 20 GM/30 ML UCUP PO PRN (15:27)
--- NOTE | 2024-04-05 20:50 | P.DS ---
Admission Date: 04/05/24 Discharge Date: 04/05/24 Disposition: ROUTINE DISCHARGE Discharge Condition: GOOD Reason for Admission: back pain Brief History of Present Illness: Patient is a 24-year old female with obesity but otherwise no other chronic medical issues. She is here for acutely worsening lower back pain ongoing for the past 3 days. She has no fever. She also denies nausea or vomiting. CT A/P is suggestive of SBO. Her last BM was 2 days ago. During my evaluation, she was awake but in mild distress. She is hemodynamically stable. Hospital Course: Patient is a 24-year old female with past medical history of obesity who presented with low back pain for 3 days. The symptom progressively worsened and pt came to the ER for evaluation. On admission, CT abd/pe;vis suggested small bowel obstruction. We admitted pt, kept her NPO and consulted gen surgeon. The Gen surgeon recommended lactulose and pt had bowel movement. She tolerated oral intake and felt better. She requested to be discharged and the Gen surgeon cleared her for discharge. Pt was advised to take miralax 17gm daily prn. Pt was in NAD prior to discharge. Vital Signs/Physical Exam: Temp Pulse Resp BP Pulse Ox 98.1 F 74 16 113/58 L 99 04/05/24 16:00 04/05/24 16:00 04/05/24 16:00 04/05/24 16:00 04/05/24 16:00 Laboratory Data at Discharge: WBC 8.80 thou/uL (4.3-10.9) 04/04/24 21:39 Hgb 12.4 g/dL (12.0-15.0) 04/04/24 21:39 Hct 37.1 % (36.0-45.0) 04/04/24 21:39 Plt Count 287 thou/uL (152-406) 04/04/24 21:39 Sodium 138 mEq/L (136-145) 04/04/24 21:39 Potassium 3.9 mEq/L (3.5-5.1) 04/04/24 21:39 BUN 18 mg/dL (7-18) 04/04/24 21:39 Creatinine 0.84 mg/dL (0.55-1.02) 04/04/24 21:39 Glucose 96 mg/dL (74-106) 04/04/24 21:39 Phosphorus 3.4 mg/dL (2.5-4.9) 04/05/24 07:16 Magnesium 2.0 mg/dL (1.6-2.4) 04/05/24 07:16 Total Bilirubin 0.3 mg/dL (0.2-1.0) 04/04/24 21:39 AST 12 U/L (15-37) L 04/04/24 21:39 ALT 18 U/L (13-56) 04/04/24 21:39 Alkaline Phosphatase 77 U/L (45-117) 04/04/24 21:39 Lipase 28 U/L (13-75) 04/04/24 21:39 Home Medications: Etodolac [Lodine] 200 mg PO Q6HR 04/05/24 Polyethylene Glycol 3350 [Miralax] 17 gm PO DAILY PRN 7 Days #7 packet 04/05/24 methocarbamoL [Methocarbamol] 750 mg PO BID 04/05/24 New Medications: Polyethylene Glycol 3350 [Miralax] 17 gm PO DAILY PRN 7 Days #7 packet PRN Reason: Constipation Physician Discharge Instructions: Continue ad sapna activity as tolerated. Take miralax 17gm po daily prn for constipation. Follow up with PCP within 1 - 2 weeks Diet: Regular Activity: Ad sapna Followup: NONE,NONE [Primary Care Provider] -
[2024-04-05 20:57] VITALS: BP 110/61; TEMP 98.4
[2024-04-05 23:07] VITALS: O2SAT 100
== END 2024-04-05 21:40 | disposition home or self-care (01) | DRG 390 ==
LOC: ER 19:52 → ERHOLD 04-05 01:16 → 2ND 04-05 03:35
PROVIDERS: ADMIT Internal Medicine; ATTEND Hospitalist
DX: K56.0 Paralytic ileus (principal); K21.9 Gastro-esophageal reflux disease without esophagitis; F43.10 Post-traumatic stress disorder, unspecified; E66.9 Obesity, unspecified; Z68.34 Body mass index [BMI] 34.0-34.9, adult; Z79.899 Other long term (current) drug therapy
CPT/HCPCS: 36415; 74018; 74177; 80053; 81003; 81025; 82550; 83690; 83735; 84100; 85025; 96361; 96374; 96375; 99285; J1650; J2405; J2470; J2765; J7030; Q9967